=== PATIENT | male | born 1935 | race Caucasian/White ===

== ENCOUNTER 2019-12-29 04:07 | Emergency (ER) | payer MEDICARE, SELFPAY ==
[2019-12-29 04:14] VITALS: BP 148/98; PULSE 92; RESP 20; TEMP 36.2; O2SAT 97
[2019-12-29] MEDS: CIPROFLOXACIN 500 MG TAB PO (04:34)
--- NOTE | 2019-12-29 04:39 | ED.MALEGU ---
HPI - Male Genitourinary General Chief complaint: Urogenital-Male Stated complaint: unable to urinate Time Seen by Provider: 12/29/19 04:29 History of Present Illness HPI Narrative: Patient presents with his for bladder pressure. He has never had a problem with his prostate before. He does not have a urologist. He had increasing pressure in his lower abdomen. And was unable to urinate. The nurse quickly inserted a Correa catheter, and the patient's had nearly a liter returned. The patient feels so much better by the time I get to the room. He had COVID 2 weeks ago. He and his are still on quarantine isolation. He does not have any fever or cough. He does not smoke cigarettes,, or do drug MD Complaint: other (Unable to urinate) Onset (ago): hour(s) Duration: constant Location: abdomen Severity: severe Quality: aching Relieving factors: other (Correa catheter here) Related Data Allergies Allergy/AdvReac Type Severity Reaction Status Date / Time No Known Allergies Allergy Verified 12/29/19 04:13 Review of Systems Review of Systems: Narrative: CONSTITUTIONAL: Denies fever, chills, or sweats. EYES: Denies visual changes, redness, or discharge. ENT: Denies rhinorrhea, congestion, sore throat, or otalgia. CARDIOVASCULAR: Denies chest pain, palpitations, or edema. RESPIRATORY: Denies cough or dyspnea. GASTROINTESTINAL: Lower abdominal pain, but not nausea, vomiting, or diarrhea. GENITOURINARY: Denies dysuria or hematuria. SKIN: Denies rash or itching. MUSCULOSKELETAL: Denies back pain, joint pain, or myalgia. NEUROLOGIC: Denies headache, numbness, or weakness. All systems reviewed & are unremarkable except as noted in HPI and below PMFSH Past Medical History Medical History Urinary retention Social History Social History (Updated 12/29/19 @ 04:41 by Crystal Lindsay MD) Smoking status: Never smoker Alcohol intake: never Substance use: never Exam Narrative: Exam Narrative: GENERAL: Well-appearing, well-nourished, and in no acute distress. HEAD: Normocephalic, atraumatic. EYES: PERRLA and EOMI. ENT: Nares clear, no rhinorrhea or epistaxis. Mucous membranes moist. NECK: Supple. CHEST: Clear to auscultation. No respiratory distress. HEART: Regular rate and rhythm. No murmur heard. Normal peripheral pulses. ABDOMEN: Soft, nontender, nondistended, normal active bowel sounds. EXTREMITIES: Normal range of motion. No edema. SKIN: Warm, dry, no rash. NEURO: No focal deficits. Alert and oriented x3. PSYCH: Normal mood and affect. Course Vital Signs Vital signs: Vital Signs Temperature 97.2 F L 12/29/19 04:14 Pulse Rate 92 12/29/19 04:14 Respiratory Rate 20 12/29/19 04:14 Blood Pressure 148/98 H 12/29/19 04:14 Pulse Oximetry 97 12/29/19 04:14 Temperature 97.2 F L 12/29/19 04:14 Pulse Rate 82 12/29/19 05:34 Respiratory Rate 16 12/29/19 05:34 Blood Pressure 134/75 12/29/19 05:34 Pulse Oximetry 99 12/29/19 05:34 MDM - Male Genitourinary Differential Diagnosis Differential diagnosis: Likely prostatitis and other (Urinary retention) Medical Records Attestation: I reviewed the patient's medical records. Lab Data Attestation: I reviewed the patient's lab results. Result diagrams: 12/29/19 05:03 12/29/19 05:03 Labs: Lab Results 12/29/19 12/29/19 12/29/19 Range/Units 05:03 05:03 05:03 WBC 9.9 (4.5-10.0) K/mm3 RBC 4.75 (4.6-6.20) M/mm3 Hgb 13.9 L (14.0-18.0) g/dL Hct 40.4 L (42.0-52.0) % MCV 85.1 (80-100) fl MCH 29.3 (26-34) pg MCHC 34.4 (32-36) g/dl RDW 14.6 H (11.5-14.5) % Plt Count 685 H (150-375) k/mm3 MPV 9.7 (7.4-10.4) fl Immature Gran % (Auto) 0.4 (0-0.5) % Neut % (Auto) 52.3 (45.5-73.1) % Lymph % (Auto) 31.7 (18.3-44.2) % [place] % (Auto) 14.8 H (2.6-8.5) % Eos % (Auto) 0.5 (0-4.4) % Baso % (Auto)
[2019-12-29 05:11] LABS: Basophils Percent Auto 0.3 % (0.2-1.2); Eosinophils Absolute Auto 0.1 K/mm3 (0-0.3); Eosinophils Percent Auto 0.5 % (0-4.4); Hematocrit 40.4 % (42.0-52.0); Hemoglobin 13.9 g/dL (14.0-18.0); Immature Granulocyte Absolute 0.04 K/mm3 (0.00-0.031); Immature Granulocyte Percent A 0.4 % (0-0.5); Lymphocytes Absolute Auto 3.14 K/mm3 (0.9-3.2); Lymphocytes Percent Auto 31.7 % (18.3-44.2); Mean Corpuscular HGB Conc 34.4 g/dl (32-36); Mean Corpuscular Hemoglobin 29.3 pg (26-34); Mean Corpuscular Volume 85.1 fl (80-100); Mean Platelet Volume 9.7 fl (7.4-10.4); Monocytes Absolute Auto 1.5 K/mm3 (0.1-0.6); Monocytes Percent Auto 14.8 % (2.6-8.5); Neutrophils Absolute Auto 5.2 K/mm3 (1.3-6.7); Neutrophils Percent Auto 52.3 % (45.5-73.1); Platelet Count Result 685 k/mm3 (150-375); Red Blood Count 4.75 M/mm3 (4.6-6.20); Red Cell Distribution Width 14.6 % (11.5-14.5); White Blood Count 9.9 K/mm3 (4.5-10.0)
[2019-12-29 05:17] LABS: Add Urine Microscopic? YES; Appearance Urine Clear (Clear); Bilirubin Urine Negative (Negative); Blood Urine 1+ (Negative); Color Urine Yellow (Yellow); Glucose Urine UA Negative (Negative); Ketones Urine Negative (Negative); Leukocyte Esterase Ur Negative LEU/UL (Negative); Mucus Urine Rare /lpf; Nitrate Urine Negative (Negative); Protein Urine Negative (Negative); Specific Grav Ur 1.012 (1.001-1.035); Urobilinogen Urine Negative mg/dL (<2.0); WBC Urine 0-3 /hpf
[2019-12-29 05:34] VITALS: BP 134/75; PULSE 82; RESP 16; O2SAT 99
[2019-12-29 05:36] LABS: Alanine Aminotransferase 26 U/L (4-50); Albumin Level 3.6 g/dL (3.5-5.1); Alkaline Phosphatase 115 U/L (38-126); Anion Gap 9 mmol/L (8-16); Aspartate Amino Transferase 38 U/L (17-59); Bilirubin,Total 0.4 mg/dL (0.2-1.3); Blood Urea Nitrogen 14 mg/dL (9-20); Calcium 8.6 mg/dL (8.4-10.2); Carbon Dioxide 24 mmol/L (22-30); Chloride 99 mmol/L (98-107); Estimated CRCL calculation 54 ml/min; Estimated Glomerular Filt Rate > 60; Glucose 170 mg/dL (75-110); Potassium 3.6 mmol/L (3.4-5.0); Sodium 132 mmol/L (137-145)
== END 2019-12-29 05:36 | disposition home or self-care (01) ==
PROVIDERS: Emergency Provider Emergency Medicine; PCP Physician Assistant Medical
DX: R33.9 Retention of urine, unspecified (principal); D47.3 Essential (hemorrhagic) thrombocythemia; U07.1 COVID-19
CPT/HCPCS: 36415; 51702; 80053; 81001; 85025; 99283; A9270

== ENCOUNTER 2020-02-10 03:11 | Outpatient (CLI) | payer MEDICARE, SELFPAY ==
[2020-02-10 20:04] LABS: SARS-CoV-2 RNA PCR Negative
== END 2020-02-10 03:12 | disposition home or self-care (01) ==
LOC: ANHCOVIDDT 03:12
PROVIDERS: PCP Physician Assistant Medical; Visit Provider Urology
DX: Z01.812 Encounter for preprocedural laboratory examination (principal); Z20.828 Contact with and (suspected) exposure to other viral communicable diseases
CPT/HCPCS: 87635; C9803; U0003

== ENCOUNTER 2020-02-10 08:16 | Outpatient (CLI) | payer MEDICARE, SELFPAY ==
--- NOTE | 2020-02-10 08:18 | ECG_ITS ---
Measurements Intervals [place] Rate: 81 P: 53 NM: 182 QRS: -36 QRSD: 162 T: 30 QT: 400 QTc: 466 Interpretive Statements SINUS RHYTHM LEFT AXIS DEVIATION RIGHT BUNDLE BRANCH BLOCK BASELINE ARTIFACT- I, II, III, AVR, AVL, AVF, V1-V6 ABNORMAL ECG Electronically Signed On 02-10-2020 8:59:21 CDT by Filippo Ureña D.O.
== END 2020-02-10 08:17 | disposition home or self-care (01) ==
LOC: ANHSURGERY 08:18
PROVIDERS: PCP Physician Assistant Medical; Visit Provider Urology
DX: Z01.812 Encounter for preprocedural laboratory examination (principal); E11.9 Type 2 diabetes mellitus without complications; R94.31 Abnormal electrocardiogram [ECG] [EKG]
CPT/HCPCS: 87635; 93005; C9803; U0003

== ENCOUNTER 2020-02-13 13:08 | Inpatient (IN) | payer MEDICARE, SELFPAY ==
[2020-02-06 14:54] VITALS: BMI 25.7
--- NOTE | 2020-02-09 07:51 | P.HP_ITS ---
H&P: HPI History of Present Illness Date/Time: 02/09/20 07:51 Chief complaint: Bladder CA, BPH, Retention Narrative: Geovanni Nichole Jr. is a 84 year old male recently referred for urinary retention. Patient has long-standing prostatism this become refractory to combination therapy with both tamsulosin and finasteride. After developing acute retention he underwent cystoscopy that showed bilobar hyperplasia of the prostate with a 2 cm prostatic urethra. The time of cystoscopy also had papillary changes in the anterior bladder wall suggestive of a urothelial neoplasm. Review of Systems Cardiovascular: Cardiovascular: Denies chest pain, Denies lightheadedness, Denies palpitations and Denies dyspnea Respiratory: Respiratory: Denies dyspnea Gastrointestinal: Gastrointestinal: Denies diarrhea, Denies nausea and Denies vomiting Genitourinary: Genitourinary: Denies hematuria and Denies dysuria Endocrine: Endocrine: Denies palpitations PMFSH Past Medical History Medical History Urinary retention Social History Social History Smoking status: Former smoker Additional smoking assessment comments: QUIT AGE 49 Alcohol intake: never Substance use: never 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 Meds Home Medications and Allergies Home Medications Medication Instructions Recorded Confirmed Type aspirin 81 mg PO DAILY 02/06/20 02/06/20 History lisinopril 20 mg DAILY 02/06/20 02/06/20 History metformin 500 mg PO BID 02/06/20 02/06/20 History Allergies Allergy/AdvReac Type Severity Reaction Status Date / Time No Known Allergies Allergy Verified 02/06/20 14:51 Exam Const: General: no acute distress Resp: Effort & Inspection: normal respiratory effort GI: Inspection: non-distended GI Palp: No abdominal tenderness and No Guarding due to palpation present (GI) Auscultation: normal bowel sounds Assessment and Plan Assessment and plan (1) Urinary retention: Code(s): R33.9 - Retention of urine, unspecified Status: Acute (2) BPH loc w urin obs/LUTS: Code(s): N40.1 - Benign prostatic hyperplasia with lower urinary tract symptoms Status: Acute (3) Bladder cancer: Code(s): C67.9 - Malignant neoplasm of bladder, unspecified Status: Acute Assessment and Plan: * TURP and TURBT.
[2020-02-12] VITALS (11 sets, daily range): BP systolic 87–154; BP diastolic 53–95; PULSE 41–84; RESP 10–20; TEMP 35.8–36.4; O2SAT 93–99
--- NOTE | 2020-02-12 06:46 | WPDHPUPDATE1 ---
History and Physical Update Update Date/Time: 02/12/20 06:46 History and Physical has been reviewed, including an updated exam of the patient. There are NO changes in the patient's condition. Risks, benefits, and alternatives have been discussed and questions answered. Patient agrees to proceed with procedure.
[2020-02-12 13:20] LABS: Glucose Point of Care 119 (65-105)
[2020-02-12] MEDS: LACTATED RINGERS 1,000 ML 30 ML IV CONT ×2 (13:20→17:33)
--- NOTE | 2020-02-12 14:48 | WPDANESEPPF ---
Anes - Initial Pre Proc Eval Procedure: Operation Date: 02/12/20 15:00 Proposed Procedures p Trans Urethral Resection Bladder Tumor - Sergio Ralph MD s Trans Urethral Resection Prostate - Sergio Ralph MD Date/Time: 02/12/20 14:48 Surgeon: Sergio Ralph MD Pre Op Diagnosis: Bladder CA, BPH, Retention Patient Data Age: 84 Gender: M Height: 5 ft 11 in Weight: 85.9 kg Last Vital Signs Temp 36.2 C L 02/12/20 13:01 Pulse 41 L 02/12/20 13:01 Resp 18 02/12/20 13:01 BP 138/60 02/12/20 13:01 Pulse Ox 94 02/12/20 13:01 Allergies Allergy/AdvReac Type Severity Reaction Status Date / Time No Known Allergies Allergy Verified 02/12/20 13:37 Home Medications Medication Instructions Recorded Confirmed Type aspirin 81 mg PO DAILY 02/06/20 02/12/20 History lisinopril 20 mg DAILY 02/06/20 02/12/20 History metformin 500 mg PO BID 02/06/20 02/12/20 History Laboratory Tests 02/12/20 13:18 POC Capillary Glucose 119 mg/dl H mg/dl (65-105) Patient hx anesthesia problems: none Family hx anesthesia problems: none [facility] Past Medical History Medical History (Updated 02/12/20 @ 14:54 by Randy Olmos MD) HTN (hypertension) Urinary retention Surgical History Surgical History (Updated 02/12/20 @ 14:54 by Randy Olmos MD) History of partial pancreatectomy Social History Social History Smoking status: Former smoker Additional smoking assessment comments: QUIT AGE 49 Alcohol intake: never Substance use: never Living arrangements: with family 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 Anes - Eval Final PreProcedure Day of Procedure 02/12/20 14:48 Patient weight: overweight Heart: regular rate and rhythm Lungs: clear to auscultation Airway: Mallampati scale class II Neurological: alert and oriented Last oral intake: >/= 8 hours ASA classification: III Emergent: no Anesthetic plan: proceed Anesthesia type and monitoring: general LMA and standard monitoring Informed Consent: The patient's anesthetic plan and its attendant risks and benefits were discussed with the patient/family/POA. Questions were solicited and answers provided to the satisfaction of the patient/family/POA.
--- NOTE | 2020-02-12 15:16 | SUR.PREOP ---
1400 PT INFORMED OF SURGERY TIME DELAY. 1500 LEG BAG EMPTIED, WARM BLANKET APPLIED. DENIES ANY OTHER NEEDS.
[2020-02-12 15:45] LABS: Glucose Point of Care 94 (65-105)
[2020-02-12] MEDS: ceFAZolin 2 GM/D5W 50 ML 2 GM/50 ML BAG IVPB (15:46)
[2020-02-12] MEDS: LIDOCAINE HCL 2% GEL UROJET 10 ML PKG MUCOUS MEM (16:07)
[2020-02-12 17:28] LABS: Glucose Point of Care 161 (65-105)
--- NOTE | 2020-02-12 17:38 | PM.PROC ---
Procedure Note - Detailed Date of procedure: 02/12/20 Pre-op diagnosis: Bladder CA, BPH, Retention Post-op diagnosis: other (1. Catheter cystitis (vs. bladder cancer) 2. Bladder stone 3. Urinary retention due to BPH) Procedure performed: 1. TurBT 2. Laser lithotripsy, extraction bladder stone 3. TURP Description of procedure: The patient was brought to the operative suite where he is prepped and draped in routine sterile fashion while in the dorsal lithotomy position after the uneventful induction of a general LMA anesthetic. A 27 Cam[place]onian resectoscope sheath was placed into his bladder. He had no urethral strictures. The patient had trilobar hyperplasia with a very large median lobe. The bladder itself was endoscopically normal, showing no mucosal hyperemia, intravesical neoplasm or foreign bodies. There was a single, orthotopic ureteral orifice bilaterally. These orifices were identified and preserved throughout the remainder of the procedure.He has an area of hyperemia in the posterior bladder wall that I originally thought may represent a urothelial neoplasm. Today, however, it looks more like catheter cystitis. I did resect that and sent for pathological evaluation. The base and periphery that site were cauterized with the loop electrode. Also found about a 2 cm bladder calculus that could not be removed intact. I used a 1000 micron holmium laser fiber to fractured into small pieces, all of which were evacuated with an Ellik evacuator. Attention was first turned to resection of the median lobe. This resection was undertaken from the bladder neck to the verumontanum and carried out until the transverse fibers of the bladder neck were identified. The left lateral lobe was then resected starting at the 6 o'clock position, working counter clockwise to the 12 o'clock position. Again, resection was carried out from the bladder neck to the verumontanum until the capsular fibers of the prostate were identified. The right lateral lobe was resected in a similar fashion starting at the 6 o'clock position working clockwise to the 12 o'clock position and carried out until the capsular fibers of the prostate were identified. Apical tissue was then circumferentially resected. All chips were evacuated from the bladder using an Ellik evacuator. Hemostasis was obtained with electric cautery. The ureteral orifices were again inspected and found to be without injury. Estimated blood loss throughout this procedure was 150cc. The patient was taken to recovery room having tolerated this well. Anesthesia: GLMA Surgeon: Sergio Ralph MD Estimated blood loss (mL): 150 Drains: Yes (24F hematuria catheter) Packing: No Pathology: yes Complications: No immediate complications Condition: stable Disposition: PACU
[2020-02-12] MEDS: fentaNYL CITRATE INJ (*CRX) 100 MCG/2 ML VIAL 25 MCG IV PUSH ×4 (17:49→18:26)
[2020-02-12] MEDS: metFORMIN HCL 500 MG TABLET PO (22:38)
[2020-02-12] MEDS: DOCUSATE SODIUM 100 MG CAPSULE PO (22:38)
[2020-02-12 22:47] LABS: Glucose Point of Care 192 (65-105)
--- NOTE | ~2020-02-13 | XR_ITS ---
XR abdomen obstructive series DATE: 02/17/2020 16:37 INDICATION: Abdominal pain. History of bladder cancer. TECHNIQUE: Portable supine and upright AP views of the abdomen COMPARISON: None FINDINGS: Mild infiltrate or atelectasis suggested at the right lung base. Slight pleural effusions are suggested by minimal blunting of the costophrenic angles. No intraperitoneal free air is evident. No visceromegaly is detected. The psoas shadows are intact. The bowel gas pattern is unremarkable, without evidence of obstruction. IMPRESSION: Mild infiltrate or atelectasis at the right lung base and slight bilateral pleural effusi ons Nonspecific abdomen; no obstruction or intraperitoneal free air is detected Reviewed, dictated and finalized at [facility]. Reviewed, dictated and finalized at location [facility]. IMPRESSION: Mild infiltrate or atelectasis at the right lung base and slight bi lateral pleural effusions Nonspecific abdomen; no obstruction or intraperitoneal free air is detected
[2020-02-13 00:15] VITALS: BP 132/59; PULSE 85; RESP 22; TEMP 36.6; O2SAT 93
--- NOTE | 2020-02-13 02:49 | ADMGEN ---
This patient, Geovanni Nichole , was admitted to 2 Medical Room 249-01. Patient/family oriented to hospital policies and general routines including ID bracelet, bed and alarms, visiting hours, pain management, procedures, bathroom and other care routines, personal items, smoking policy, room service/diet, and visiting hours. Valuables list has been completed. Information on how to activate the Rapid Response Team has been discussed. Patient/Family are encouraged to report perceived risks to care and to ask questions if they do not understand what they are told or what they should do. Patient on floor at 1847
[2020-02-13 04:15] VITALS: BP 149/68; PULSE 79; RESP 18; TEMP 36.3; O2SAT 97
[2020-02-13 05:18] LABS: Hematocrit 33.5 % (42.0-52.0); Hemoglobin 11.4 g/dL (14.0-18.0)
[2020-02-13 05:35] LABS: Anion Gap 8 mmol/L (8-16); Blood Urea Nitrogen 19 mg/dL (9-20); Calcium 8.6 mg/dL (8.4-10.2); Carbon Dioxide 24 mmol/L (22-30); Chloride 102 mmol/L (98-107); Estimated CRCL calculation 49 ml/min; Estimated Glomerular Filt Rate > 60; Glucose 220 mg/dL (75-110); Potassium 4.8 mmol/L (3.4-5.0); Sodium 134 mmol/L (137-145)
[2020-02-13 07:54] LABS: Glucose Point of Care 143 (65-105)
--- NOTE | 2020-02-13 08:00 | WPDUROPN2 ---
Progress Note: A&P Assessment and Plan (1) Urinary retention: Code(s): R33.9 - Retention of urine, unspecified Status: Acute (2) BPH loc w urin obs/LUTS: Code(s): N40.1 - Benign prostatic hyperplasia with lower urinary tract symptoms Status: Acute Assessment and Plan: Doing well following TURP. Stop CBI / voiding trial later this morning if urine remains clear. Subjective Subjective Date/Time Seen: 02/13/20 08:00 POD #1 TURP Comfortable, no complaints Review of Systems Cardiovascular: Cardiovascular: Denies chest pain, Denies lightheadedness, Denies palpitations and Denies dyspnea Respiratory: Respiratory: Denies dyspnea Gastrointestinal: Gastrointestinal: Denies diarrhea, Denies nausea and Denies vomiting Genitourinary: Genitourinary: Denies hematuria and Denies dysuria Endocrine: Endocrine: Denies palpitations Exam Const: General: no acute distress Resp: Effort & Inspection: normal respiratory effort GI: Inspection: non-distended GI Palp: No abdominal tenderness and No Guarding due to palpation present (GI) Auscultation: normal bowel sounds Objective Data Vital Signs Vital Signs: Vital Signs - 24 hr 02/12/20 13:01 02/12/20 17:16 02/12/20 17:30 Temperature 97.2 F L 97.4 F L Pulse Rate 41 L 79 84 Respiratory Rate 18 10 L 20 Blood Pressure 138/60 87/53 L 116/66 Pulse Oximetry 94 98 97 02/12/20 17:45 02/12/20 18:00 02/12/20 18:15 Temperature 97 F L Pulse Rate 80 80 76 Respiratory Rate 20 16 18 Blood Pressure 132/90 134/72 146/84 H Pulse Oximetry 95 93 95 02/12/20 18:25 02/12/20 18:50 02/12/20 19:05 Temperature 96.4 F L 97.3 F L Pulse Rate 81 77 84 Respiratory Rate 15 18 20 Blood Pressure 154/93 H 153/95 H 150/86 H Pulse Oximetry 99 96 98 02/12/20 19:35 02/12/20 20:30 02/13/20 00:15 Temperature 97.5 F L 97.4 F L 97.8 F Pulse Rate 78 73 85 Respiratory Rate 20 20 22 H Blood Pressure 142/82 H 146/85 H 132/59 L Pulse Oximetry 94 98 93 09/25/20 04:15 Temperature 97.3 F L Pulse Rate 79 Respiratory Rate 18 Blood Pressure 149/68 H Pulse Oximetry 97 Intake/Output Intake/Output: Intake & Output 02/10/20 02/11/20 02/12/20 02/13/20 23:59 23:59 23:59 23:59 Intake Total 650 200 Output Total [id number] [facility] -[id number] [id number] Meds/Results Medications: Active Medications Generic Name Dose Route Start Last Admin Trade Name Freq PRN Reason Stop Dose Admin Hydrocodone Bitart/Acetaminophen 1 tab 02/12/20 18:30 [place] 5-325 Mg PO Q4H PRN Pain Rated 4-6 Cephalexin HCl 500 mg 02/13/20 13:00 Keflex Capsule PO QID FLORIAN Dextrose 12.5 gm 02/12/20 18:30 Dextrose 50% Syringe IV PUSH PRN PRN Hypoglycemia Protocol Docusate Sodium 100 mg 02/12/20 21:00 02/12/20 22:38 Colace Capsule PO 100 mg Q12HR FLORIAN Administration Glucagon 1 mg 02/12/20 18:30 Glucagon For Inj IM PRN PRN Hypoglycemia Protocol Glucose 15 gm 02/12/20 18:30 Glutose 15 PO PRN PRN Hypoglycemia Protocol Hyoscyamine 0.125 mg 02/12/20 18:30 Levsin Tablet SUBLINGUAL Q6H PRN Bladder Spasm Cefazolin Sodium 1 gm in 50 mls @ 100 mls/hr 02/13/20 00:00 02/13/20 00:37 Ancef 1 Gm/D5w 50 Ml Pm IVPB 02/13/20 08:29 Infused Q8H FLORIAN Infusion Acetaminophen 1,000 mg in 100 mls @ 400 mls/hr 02/12/20 18:30 Ofirmev 1,000 Mg Ivpb IVPB 02/13/20 18:31 Q6H PRN Pain Rated 1-3 Dextrose 1,000 mls @ 100 mls/hr 02/12/20 18:30 Dextrose 5% 1,000 Ml IVPB PRN PRN Hypoglycemia Protocol Insulin Aspart 2 - 5 units 02/13/20 08:00 Novolog SUB-Q TIDWM [facility] Protocol Lisinopril 20 mg 02/13/20 09:00 Prinivil BY MOUTH DAILY [facility] Metformin HCl 500 mg 02/12/20 18:50 02/12/20 22:38 Glucophage PO 500 mg BIDWM FLORIAN Administration Morphine Sulfate 2 mg 02/12/20 18:30 Morphine Sulfate Inj (*Crx) IV PUSH
[2020-02-13 08:15] VITALS: BP 145/63; PULSE 77; RESP 18; TEMP 36.4; O2SAT 98
[2020-02-13] MEDS: metFORMIN HCL 500 MG TABLET PO ×2 (09:55→17:19)
[2020-02-13] MEDS: lisinopriL 20 MG TABLET BY MOUTH (09:55)
[2020-02-13] MEDS: DOCUSATE SODIUM 100 MG CAPSULE PO ×2 (09:55→20:11)
[2020-02-13 10:54] VITALS: BP 161/90; PULSE 107; RESP 20; TEMP 36.9; O2SAT 92
[2020-02-13] MEDS: ONDANSETRON INJ 4 MG/2 ML VIAL IV PUSH (11:21)
[2020-02-13 11:36] LABS: Glucose Point of Care 141 (65-105)
[2020-02-13] MEDS: CEPHALEXIN 500 MG CAPSULE PO ×3 (13:04→20:11)
[2020-02-13 14:00] VITALS: BP 93/53; PULSE 61; RESP 20; TEMP 36.9; O2SAT 91
[2020-02-13 16:59] LABS: Glucose Point of Care 190 (65-105)
[2020-02-13 21:43] LABS: Glucose Point of Care 209 (65-105)
[2020-02-13 22:00] VITALS: BP 102/70; PULSE 97; RESP 20; TEMP 37; O2SAT 98
[2020-02-14 05:56] VITALS: BP 135/79; PULSE 100; RESP 20; TEMP 36.8; O2SAT 92
[2020-02-14 08:11] LABS: Glucose Point of Care 189 (65-105)
[2020-02-14] MEDS: metFORMIN HCL 500 MG TABLET PO ×2 (08:12→17:36)
[2020-02-14] MEDS: lisinopriL 20 MG TABLET BY MOUTH (08:12)
[2020-02-14] MEDS: DOCUSATE SODIUM 100 MG CAPSULE PO ×2 (08:12→20:10)
[2020-02-14] MEDS: CEPHALEXIN 500 MG CAPSULE PO ×4 (08:12→20:10)
--- NOTE | 2020-02-14 09:08 | PC.NURSE ---
Patient's CBI was stopped this morning at [address] Ralph' orders. Urine output is very dark, bloody;no clots present. Paged to Dr. Ralph' exchange and spoke with Dr. Gonzalez and received orders to restart CBI and hold discharge until he is able to come see him later today.
[2020-02-14 12:07] LABS: Glucose Point of Care 192 (65-105)
[2020-02-14 14:00] VITALS: BP 140/74; PULSE 94; RESP 16; TEMP 37.7; O2SAT 94
[2020-02-14 14:35] VITALS: TEMP 37.7
[2020-02-14] MEDS: ACETAMINOPHEN 500 MG TABLET 1000 MG PO (14:35)
[2020-02-14 15:35] VITALS: TEMP 36.7
[2020-02-14 18:30] LABS: Glucose Point of Care 181 (65-105)
--- NOTE | 2020-02-14 21:13 | WPDUROPN2 ---
Progress Note: A&P Additional Plan Maintain catheter, titrate CBI to light pink/clear urine. We will attempt a trial of void tomorrow if urine is without clot. Time Spent With Patient Time with patient: less than 15 minutes Subjective Subjective Date/Time Seen: 02/14/20 1530 JENNIFEREO, patient's urine is hematuric, after discussion with me, floor nursing restarted CBI. No clots. Patient feels well but had a bout of nausea. Review of Systems Review of Systems: All systems reviewed & are unremarkable except as noted in HPI and below Exam Const: General: cooperative, healthy appearing, comfortable and no acute distress Chest: Chest palpation & inspection: normal inspection of the chest Resp: Effort & Inspection: normal respiratory effort, able to speak in complete sentences, normal respiratory pattern and no audible wheezes Cardio: Jugular venous distension: no JVD Rate: regular rate Rhythm: regular rhythm Peripheral pulses: Peripheral pulses 2+ throughout GI: Inspection: normal to inspection, no abdominal wall ecchymosis and non-distended GI Palp: No abdominal tenderness Urinary Catheter: Urinary Catheter: patent and draining and urine pink Skin: General skin exam: normal color and no rashes or lesions noted Objective Data Vital Signs Vital Signs: Vital Signs - 24 hr 02/13/20 22:00 02/14/20 05:56 02/14/20 14:00 Temperature 98.6 F 98.2 F 99.8 F H Pulse Rate 97 100 94 Respiratory Rate 20 20 16 Blood Pressure 102/70 135/79 140/74 Pulse Oximetry 98 92 94 02/14/20 14:35 02/14/20 15:35 Temperature 99.8 F H 98.0 F Pulse Rate Respiratory Rate Blood Pressure Pulse Oximetry Intake/Output Intake/Output: Intake & Output 02/11/20 02/12/20 02/13/20 02/14/20 23:59 23:59 23:59 23:59 Intake Total 711 7560 2310 Output Total 7223 6489 9033 [facility] -[id number] -[phone] -240 Meds/Results Medications: Active Medications Generic Name Dose Route Start Last Admin Trade Name Freq PRN Reason Stop Dose Admin Acetaminophen 1,000 mg 02/14/20 14:23 02/14/20 14:35 Tylenol Tablet PO 1,000 mg Q6H PRN Administration Mild Pain (1-3) or Fever Hydrocodone Bitart/Acetaminophen 1 tab 02/12/20 18:30 [place] 5-325 Mg PO Q4H PRN Pain Rated 4-6 Cephalexin HCl 500 mg 02/13/20 13:00 02/14/20 20:10 Keflex Capsule PO 500 mg QID FLORIAN Administration Dextrose 12.5 gm 02/12/20 18:30 Dextrose 50% Syringe IV PUSH PRN PRN Hypoglycemia Protocol Docusate Sodium 100 mg 02/12/20 21:00 02/14/20 20:10 Colace Capsule PO 100 mg Q12HR FLORIAN Administration Glucagon 1 mg 02/12/20 18:30 Glucagon For Inj IM PRN PRN Hypoglycemia Protocol Glucose 15 gm 02/12/20 18:30 Glutose 15 PO PRN PRN Hypoglycemia Protocol Hyoscyamine 0.125 mg 02/12/20 18:30 Levsin Tablet SUBLINGUAL Q6H PRN Bladder Spasm Dextrose 1,000 mls @ 100 mls/hr 02/12/20 18:30 Dextrose 5% 1,000 Ml IVPB PRN PRN Hypoglycemia Protocol Insulin Aspart 2 - 5 units 02/13/20 08:00 02/14/20 18:27 Novolog SUB-Q Not Given TIDWM [facility] Protocol Lisinopril 20 mg 02/13/20 09:00 02/14/20 08:12 Prinivil BY MOUTH 20 mg DAILY FLORIAN Administration Metformin HCl 500 mg 02/12/20 18:50 02/14/20 17:36 Glucophage PO 500 mg BIDWM [place]ORIAN Administration Morphine Sulfate 2 mg 02/12/20 18:30 Morphine Sulfate Inj (*Crx) IV PUSH Q2H PRN Pain Rated 7-10 Naloxone HCl 0.1 mg 02/12/20 18:30 Narcan IV PUSH Q2M PRN Opiate Reversal Ondansetron HCl 4 mg 02/12/20 18:30 02/13/20 11:21 Zofran Inj IV PUSH 4 mg Q12H PRN Administration Nausea And Vomiting Labs Labs: Laboratory Results - last 24 hr 02/13/20 02/14/20 02/14/20 20:07 08:08 11:55 POC Capillary Glucose 209 H 189 H 192 H 02/14/20 18:20 POC Capillary Glucose 181 H
[2020-02-14 21:57] VITALS: BP 106/71; PULSE 91; RESP 16; TEMP 36.7; O2SAT 96
[2020-02-14] MEDS: ONDANSETRON INJ 4 MG/2 ML VIAL IV PUSH (22:31)
[2020-02-15 00:35] LABS: Glucose Point of Care 190 (65-105)
[2020-02-15 06:00] VITALS: BP 111/74; PULSE 82; RESP 16; TEMP 36.6; O2SAT 97
[2020-02-15 07:57] LABS: Glucose Point of Care 171 (65-105)
[2020-02-15] MEDS: metFORMIN HCL 500 MG TABLET PO ×2 (08:31→17:19)
[2020-02-15] MEDS: DOCUSATE SODIUM 100 MG CAPSULE PO ×2 (08:31→21:12)
[2020-02-15] MEDS: CEPHALEXIN 500 MG CAPSULE PO ×4 (08:31→21:12)
[2020-02-15] MEDS: lisinopriL 20 MG TABLET BY MOUTH (08:31)
[2020-02-15] MEDS: polyethylene glycoL 3350 17 GM POWD.PACK PO (10:43)
[2020-02-15 12:01] LABS: Glucose Point of Care 167 (65-105)
[2020-02-15] MEDS: HYDROcodone/acetaminophen (*CRX) 5-325 MG TABLET 1 TAB PO ×2 (13:11→21:14)
[2020-02-15 14:00] VITALS: BP 119/74; PULSE 80; RESP 14; TEMP 36.7; O2SAT 98
--- NOTE | 2020-02-15 16:03 | WPDUROPN2 ---
Progress Note: A&P Assessment and Plan (1) Urinary retention: Code(s): R33.9 - Retention of urine, unspecified Status: Acute Assessment and Plan: Continue trial of void, Bladder scan performed at bedside with 100 mL noted. Patient will drink, if he voids he may discharge this afternoon. If unable to void, floor nursing is instructed to hold discharge and place a 20 or 22F Correa catheter to allow for hand irrigation if necessary. (2) BPH loc w urin obs/LUTS: Code(s): N40.1 - Benign prostatic hyperplasia with lower urinary tract symptoms Status: Acute (3) Bladder cancer: Code(s): C67.9 - Malignant neoplasm of bladder, unspecified Status: Acute Subjective Subjective Date/Time Seen: 02/15/20 16:03 Post Op day: 2 Interval history: Patient denies pain, has ambulated multiple times, catheter with hematuric urine with no clots. Catheter discontinued this morning, however patient has not yet voided. He is drinking and very anxious about prospect of going home with a catheter. Exam Narrative: Exam Narrative: NAD, A&Ox3 RRR eWOB S/NT/ND 2+DPs, no C/C/E Objective Data Vital Signs Vital Signs: Vital Signs - 24 hr 02/14/20 21:57 02/15/20 06:00 Temperature 98.0 F 97.8 F Pulse Rate 91 82 Respiratory Rate 16 16 Blood Pressure 106/71 111/74 Pulse Oximetry 96 97 Intake/Output Intake/Output: Intake & Output 02/12/20 02/13/20 02/14/20 02/15/20 23:59 23:59 23:59 23:59 Intake Total 650 1180 2310 440 Output Total 5246 6263 2550 650 [facility] -4575 -5090 -240 -210 Meds/Results Medications: Active Medications Generic Name Dose Route Start Last Admin Trade Name Freq PRN Reason Stop Dose Admin Acetaminophen 1,000 mg 02/14/20 14:23 02/14/20 14:35 Tylenol Tablet PO 1,000 mg Q6H PRN Administration Mild Pain (1-3) or Fever Hydrocodone Bitart/Acetaminophen 1 tab 02/12/20 18:30 02/15/20 13:11 [place] 5-325 Mg PO 1 tab Q4H PRN Administration Pain Rated 4-6 Cephalexin HCl 500 mg 02/13/20 13:00 02/15/20 12:28 Keflex Capsule PO 500 mg QID FLORIAN Administration Dextrose 12.5 gm 02/12/20 18:30 Dextrose 50% Syringe IV PUSH PRN PRN Hypoglycemia Protocol Docusate Sodium 100 mg 02/12/20 21:00 02/15/20 08:31 Colace Capsule PO 100 mg Q12HR FLORIAN Administration Glucagon 1 mg 02/12/20 18:30 Glucagon For Inj IM PRN PRN Hypoglycemia Protocol Glucose 15 gm 02/12/20 18:30 Glutose 15 PO PRN PRN Hypoglycemia Protocol Hyoscyamine 0.125 mg 02/12/20 18:30 Levsin Tablet SUBLINGUAL Q6H PRN Bladder Spasm Dextrose 1,000 mls @ 100 mls/hr 02/12/20 18:30 Dextrose 5% 1,000 Ml IVPB PRN PRN Hypoglycemia Protocol Insulin Aspart 2 - 5 units 02/13/20 08:00 02/15/20 12:07 Novolog SUB-Q Not Given TIDWM [facility] Protocol Lisinopril 20 mg 02/13/20 09:00 02/15/20 08:31 Prinivil BY MOUTH 20 mg DAILY FLORIAN Administration Metformin HCl 500 mg 02/12/20 18:50 02/15/20 08:31 Glucophage PO 500 mg BIDWM FLORIAN Administration Morphine Sulfate 2 mg 02/12/20 18:30 Morphine Sulfate Inj (*Crx) IV PUSH Q2H PRN Pain Rated 7-10 Naloxone HCl 0.1 mg 02/12/20 18:30 Narcan IV PUSH Q2M PRN Opiate Reversal Ondansetron HCl 4 mg 02/12/20 18:30 02/14/20 22:31 Zofran Inj IV PUSH 4 mg Q12H PRN Administration Nausea And Vomiting Polyethylene Glycol 17 gm 02/15/20 10:27 02/15/20 10:43 Miralax PO 17 gm QAM PRN Administration Constipation Labs Labs: Laboratory Results - last 24 hr 02/14/20 02/14/20 02/15/20 18:20 20:06 07:49 POC Capillary Glucose 181 H 190 H 171 H 02/15/20 11:59 POC Capillary Glucose 167 H
[2020-02-15 17:00] LABS: Glucose Point of Care 159 (65-105)
[2020-02-15] MEDS: LIDOCAINE HCL 2% GEL UROJET 10 ML PKG MUCOUS MEM (19:51)
[2020-02-15 21:49] VITALS: BP 113/79; PULSE 81; RESP 16; TEMP 37; O2SAT 96
[2020-02-15 22:16] LABS: Glucose Point of Care 171 (65-105)
[2020-02-16 05:51] VITALS: BP 126/73; PULSE 76; RESP 18; TEMP 36.9; O2SAT 92
--- NOTE | 2020-02-16 07:17 | WPDUROPN2 ---
Progress Note: A&P Assessment and Plan (1) Bladder cancer: Code(s): C67.9 - Malignant neoplasm of bladder, unspecified Status: Acute (2) Urinary retention: Code(s): R33.9 - Retention of urine, unspecified Status: Acute (3) BPH loc w urin obs/LUTS: Code(s): N40.1 - Benign prostatic hyperplasia with lower urinary tract symptoms Status: Acute Assessment and Plan: With voiding trial yesterday pt. voided moderate amounts with scant incontinence but later developed recurrent hematuria with clots. Urine now minimally blood tinged but clears promptly with resumption of CBI. Will likely plan to leave catheter indwelling until either mid-week or early next week before another voiding trial. Subjective Subjective Date/Time Seen: 02/16/20 07:17 POD #4 s/p TURP/TURBT/bladder stone extraction Recurrent hematuria with clots with voiding trial yesterday. Review of Systems Cardiovascular: Cardiovascular: Denies chest pain, Denies lightheadedness, Denies palpitations and Denies dyspnea Respiratory: Respiratory: Denies dyspnea Gastrointestinal: Gastrointestinal: Denies diarrhea, Denies nausea and Denies vomiting Genitourinary: Genitourinary: Denies hematuria and Denies dysuria Endocrine: Endocrine: Denies palpitations Exam Const: General: no acute distress Resp: Effort & Inspection: normal respiratory effort GI: Inspection: non-distended GI Palp: No abdominal tenderness and No Guarding due to palpation present (GI) Auscultation: normal bowel sounds Objective Data Vital Signs Vital Signs: Vital Signs - 24 hr 02/15/20 14:00 02/15/20 21:49 02/16/20 05:51 Temperature 98.1 F 98.6 F 98.4 F Pulse Rate 80 81 76 Respiratory Rate 14 16 18 Blood Pressure 119/74 113/79 126/73 Pulse Oximetry 98 96 92 Intake/Output Intake/Output: Intake & Output 02/13/20 02/14/20 02/15/20 02/16/20 23:59 23:59 23:59 23:59 Intake Total 1180 2310 1980 350 Output Total 8265 2550 2700 1650 Balance -5090 -240 -720 -1300 Meds/Results Medications: Active Medications Generic Name Dose Route Start Last Admin Trade Name Freq PRN Reason Stop Dose Admin Acetaminophen 1,000 mg 02/14/20 14:23 02/14/20 14:35 Tylenol Tablet PO 1,000 mg Q6H PRN Administration Mild Pain (1-3) or Fever Hydrocodone Bitart/Acetaminophen 1 tab 02/12/20 18:30 02/15/20 21:14 [place] 5-325 Mg PO 1 tab Q4H PRN Administration Pain Rated 4-6 Cephalexin HCl 500 mg 02/13/20 13:00 02/15/20 21:12 Keflex Capsule PO 500 mg QID FLORIAN Administration Dextrose 12.5 gm 02/12/20 18:30 Dextrose 50% Syringe IV PUSH PRN PRN Hypoglycemia Protocol Docusate Sodium 100 mg 02/12/20 21:00 02/15/20 21:12 Colace Capsule PO 100 mg Q12HR FLORIAN Administration Glucagon 1 mg 02/12/20 18:30 Glucagon For Inj IM PRN PRN Hypoglycemia Protocol Glucose 15 gm 02/12/20 18:30 Glutose 15 PO PRN PRN Hypoglycemia Protocol Hyoscyamine 0.125 mg 02/12/20 18:30 Levsin Tablet SUBLINGUAL Q6H PRN Bladder Spasm Dextrose 1,000 mls @ 100 mls/hr 02/12/20 18:30 Dextrose 5% 1,000 Ml IVPB PRN PRN Hypoglycemia Protocol Insulin Aspart 2 - 5 units 02/13/20 08:00 02/15/20 17:10 Novolog SUB-Q Not Given TIDWM [facility] Protocol Lisinopril 20 mg 02/13/20 09:00 02/15/20 08:31 Prinivil BY MOUTH 20 mg DAILY [facility] Administration Metformin HCl 500 mg 02/12/20 18:50 02/15/20 17:19 Glucophage PO 500 mg BIDWM [facility] Administration Morphine Sulfate 2 mg 02/12/20 18:30 Morphine Sulfate Inj (*Crx) IV PUSH Q2H PRN Pain Rated 7-10 Naloxone HCl 0.1 mg 02/12/20 18:30 Narcan IV PUSH Q2M PRN Opiate Reversal Ondansetron HCl 4 mg 02/12/20 18:30 02/14/20 22:31 Zofran Inj IV PUSH 4 mg Q12H PRN Administration Nausea And Vomiting Polyethylene Glycol 17 gm
[2020-02-16 08:05] LABS: Glucose Point of Care 155 (65-105)
[2020-02-16 08:10] VITALS: PULSE 76; RESP 18; O2SAT 92
[2020-02-16] MEDS: metFORMIN HCL 500 MG TABLET PO ×2 (08:17→17:51)
[2020-02-16] MEDS: DOCUSATE SODIUM 100 MG CAPSULE PO ×2 (08:17→21:02)
[2020-02-16] MEDS: lisinopriL 20 MG TABLET BY MOUTH (08:17)
[2020-02-16] MEDS: CEPHALEXIN 500 MG CAPSULE PO ×4 (08:17→21:02)
[2020-02-16 11:23] LABS: Glucose Point of Care 134 (65-105)
[2020-02-16 14:00] VITALS: BP 120/73; PULSE 89; RESP 18; TEMP 37; O2SAT 94
[2020-02-16 16:25] LABS: Glucose Point of Care 122 (65-105)
[2020-02-16 20:08] VITALS: BP 121/70; PULSE 95; RESP 18; TEMP 36.8; O2SAT 93
[2020-02-16 22:00] LABS: Glucose Point of Care 198 (65-105)
[2020-02-17 06:00] VITALS: BP 115/75; PULSE 81; RESP 16; TEMP 37.1; O2SAT 95
--- NOTE | 2020-02-17 06:54 | WPDUROPN2 ---
Progress Note: A&P Assessment and Plan (1) BPH loc w urin obs/LUTS: Code(s): N40.1 - Benign prostatic hyperplasia with lower urinary tract symptoms Status: Acute (2) Bladder cancer: Code(s): C67.9 - Malignant neoplasm of bladder, unspecified Status: Acute (3) Urinary retention: Code(s): R33.9 - Retention of urine, unspecified Status: Acute Assessment and Plan: Urine clear [id number] -> catheter out for voiding trial today. Bladder and prostate pathology benign. Subjective Subjective Date/Time Seen: 02/17/20 06:54 POD #5 TURP/TURBT Urine clear [id number] No complaints Review of Systems Cardiovascular: Cardiovascular: Denies chest pain, Denies lightheadedness, Denies palpitations and Denies dyspnea Respiratory: Respiratory: Denies dyspnea Gastrointestinal: Gastrointestinal: Denies diarrhea, Denies nausea and Denies vomiting Genitourinary: Genitourinary: Denies hematuria and Denies dysuria Endocrine: Endocrine: Denies palpitations Exam Const: General: no acute distress Resp: Effort & Inspection: normal respiratory effort GI: Inspection: non-distended GI Palp: No abdominal tenderness and No Guarding due to palpation present (GI) Auscultation: normal bowel sounds Objective Data Vital Signs Vital Signs: Vital Signs - 24 hr 02/16/20 08:10 02/16/20 14:00 02/16/20 20:08 Temperature 98.6 F 98.2 F Pulse Rate 76 89 95 Respiratory Rate 18 18 18 Blood Pressure 120/73 121/70 Pulse Oximetry 92 94 93 Intake/Output Intake/Output: Intake & Output 02/14/20 02/15/20 02/16/20 02/17/20 23:59 23:59 23:59 23:59 Intake Total 2310 1980 2070 250 Output Total 2550 2700 2550 900 Balance -778 -438 -667 -499 Meds/Results Medications: Active Medications Generic Name Dose Route Start Last Admin Trade Name Freq PRN Reason Stop Dose Admin Acetaminophen 1,000 mg 02/14/20 14:23 02/14/20 14:35 Tylenol Tablet PO 1,000 mg Q6H PRN Administration Mild Pain (1-3) or Fever Hydrocodone Bitart/Acetaminophen 1 tab 02/12/20 18:30 02/15/20 21:14 [place] 5-325 Mg PO 1 tab Q4H PRN Administration Pain Rated 4-6 Cephalexin HCl 500 mg 02/13/20 13:00 02/16/20 21:02 Keflex Capsule PO 500 mg QID FLORIAN Administration Dextrose 12.5 gm 02/12/20 18:30 Dextrose 50% Syringe IV PUSH PRN PRN Hypoglycemia Protocol Docusate Sodium 100 mg 02/12/20 21:00 02/16/20 21:02 Colace Capsule PO 100 mg Q12HR FLORIAN Administration Glucagon 1 mg 02/12/20 18:30 Glucagon For Inj IM PRN PRN Hypoglycemia Protocol Glucose 15 gm 02/12/20 18:30 Glutose 15 PO PRN PRN Hypoglycemia Protocol Hyoscyamine 0.125 mg 02/12/20 18:30 Levsin Tablet SUBLINGUAL Q6H PRN Bladder Spasm Dextrose 1,000 mls @ 100 mls/hr 02/12/20 18:30 Dextrose 5% 1,000 Ml IVPB PRN PRN Hypoglycemia Protocol Insulin Aspart 2 - 5 units 02/13/20 08:00 02/16/20 16:27 Novolog SUB-Q Not Given TIDWM [facility] Protocol Lisinopril 20 mg 02/13/20 09:00 02/16/20 08:17 Prinivil BY MOUTH 20 mg DAILY FLORIAN Administration Metformin HCl 500 mg 02/12/20 18:50 02/16/20 17:51 Glucophage PO 500 mg BIDWM [facility] Administration Morphine Sulfate 2 mg 02/12/20 18:30 Morphine Sulfate Inj (*Crx) IV PUSH Q2H PRN Pain Rated 7-10 Naloxone HCl 0.1 mg 02/12/20 18:30 Narcan IV PUSH Q2M PRN Opiate Reversal Ondansetron HCl 4 mg 02/12/20 18:30 02/14/20 22:31 Zofran Inj IV PUSH 4 mg Q12H PRN Administration Nausea And Vomiting Polyethylene Glycol 17 gm 02/15/20 10:27 02/15/20 10:43 Miralax PO 17 gm QAM PRN Administration Constipation Labs Labs: Laboratory Results - last 24 hr 02/16/20 02/16/20 02/16/20 07:38 11:21 16:12 POC Capillary Glucose 155 H 134 H 122 H 02/16/20 21:00 POC Capillary Glucose 198 H
[2020-02-17] MEDS: polyethylene glycoL 3350 17 GM POWD.PACK PO (07:53)
[2020-02-17] MEDS: lisinopriL 20 MG TABLET BY MOUTH (07:54)
[2020-02-17] MEDS: CEPHALEXIN 500 MG CAPSULE PO ×3 (07:55→16:47)
[2020-02-17] MEDS: metFORMIN HCL 500 MG TABLET PO ×2 (07:55→16:47)
[2020-02-17] MEDS: DOCUSATE SODIUM 100 MG CAPSULE PO (07:58)
[2020-02-17 11:33] LABS: Glucose Point of Care 153 (65-105)
[2020-02-17 11:33] LABS: Glucose Point of Care 136 (65-105)
[2020-02-17 14:00] VITALS: BP 139/67; PULSE 90; RESP 16; TEMP 36.7; O2SAT 94
--- NOTE | 2020-02-17 14:02 | PM.DS ---
DS: Admitting Diagnosis Admitting Diagnosis Admitting Diagnosis: Bladder CA, BPH, Retention DS: Discharge Diagnosis Discharge Diagnosis (1) BPH loc w urin obs/LUTS: Code(s): N40.1 - Benign prostatic hyperplasia with lower urinary tract symptoms Status: Acute (2) Urinary retention: Code(s): R33.9 - Retention of urine, unspecified Status: Acute (3) Bladder stone: Code(s): N21.0 - Calculus in bladder Status: Acute DS: Summary Time Spent with Patient Time attestation: Total time spent providing and/or coordinating discharge services:15min Patient with longstanding BPH and urinary retention was admitted on morning of his planned TURP. The time of the procedure he we also found a bladder stone which we extracted with the assistance of laser lithotripsy. In the office he had some irritation in the posterior bladder wall suggestive of possible neoplasm. At the time of resection on the day of admission, however, did appear to be more consistent with catheter cystitis and indeed the pathology came back benign. In addition to the above he underwent a TURP. His postoperative course was remarkable for prolonged bleeding necessitating an additional several day admission. Ultimately, however his urine cleared and he voided well on the day voiding trial. Exam Const: General: no acute distress Resp: Effort & Inspection: normal respiratory effort GI: Inspection: non-distended GI Palp: No abdominal tenderness and No Guarding due to palpation present (GI) Auscultation: normal bowel sounds DS: Data Data Completed and Pending Completed studies during hospitalization: Pending at discharge 02/12/20 16:16 Surgical [PTH] Routine Surgical [PTH] Routine Labs on day of discharge: Labs from last 24 hours 02/17/20 02/17/20 02/16/20 11:31 07:50 21:00 POC Capillary Glucose 136 H 153 H 198 H 02/16/20 16:12 POC Capillary Glucose 122 H Discharge Plan Discharge Attending physician on discharge: Sergio Ralph Discharging Clinician: Sergio Ralph Patient Disposition: Home, Self-Care Activity: no straining Diet: regular Discharge Instructions: 1) Activity: No lifting/straining >15lbs. x2 weeks. 2) Diet: Resume normal pre-admission diet. 3) Follow-up: 2-3 weeks / call office for appointment ([phone]). Stand Alone Forms: General Discharge Instructions Follow-up/Referrals: Sergio Ralph MD [Physician] - 2 Weeks Discharge Medications: New hydrocodone-acetaminophen 5-325 mg tablet 1 - 2 tablet PO Q6H PRN (Reason: pain) Qty: 20 RF: 0 ciprofloxacin HCl 500 mg tablet 500 mg PO Q12H Qty: 10 RF: 0 docusate sodium [Colace] 100 mg capsule 100 mg PO DAILY Qty: 30 RF: 0 Continued metformin 500 mg Tablet 500 mg PO BID RF: 0 lisinopril 20 mg tablet 20 mg DAILY RF: 0 Held aspirin 81 mg Tablet,Delayed Release (Dr/Ec) 81 mg PO DAILY RF: 0 Hold Instructions: Resume on 02/18/20. Date of admission: 02/14/20 18:39 Primary Care Provider: Juan,Jasmin Berumen Admitting Provider: Sergio Ralph Attending physician on admission: Sergio Ralph
[2020-02-17] MEDS: MAGNESIUM CITRATE 300 ML BTL PO (14:23)
[2020-02-17 16:12] VITALS: BP 155/81; PULSE 98; O2SAT 97
== END 2020-02-17 18:45 | disposition home or self-care (01) | DRG 708 ==
LOC: ANHSURGERY 13:10 → ANH2MED 13:10
PROVIDERS: Admitting Provider Urology; PCP Physician Assistant Medical; Visit Provider Urology
PROC: 0TBB8ZZ Excision of Bladder, Via Natural or Artificial Opening Endoscopic (ICD-10-PCS; principal; 2020-02-12 15:00)
PROC: 0VT08ZZ Resection of Prostate, Via Natural or Artificial Opening Endoscopic (ICD-10-PCS; CPT 52601; 2020-02-12 15:00)
DX: N40.1 Benign prostatic hyperplasia with lower urinary tract symptoms (principal); R33.9 Retention of urine, unspecified; N30.20 Other chronic cystitis without hematuria; N21.0 Calculus in bladder; I10 Essential (primary) hypertension; Z87.891 Personal history of nicotine dependence
CPT/HCPCS: 36415; 74019; 80048; 82365; 85014; 85018; 88300; 88305; A9270; C1758; G0378; J0131; J0690; J1100; J2405; J2704; J3010; J7120

== ENCOUNTER 2021-09-09 10:01 | Observation (INO) | payer MEDICARE, OTHER, SELFPAY ==
[2021-09-09] VITALS (29 sets, daily range): BP systolic 151–164; BP diastolic 55–101; PULSE 61–90; RESP 10–26; TEMP 36–36.4; O2SAT 90–99; BMI 26.2
--- NOTE | ~2021-09-09 | CT_ITS ---
EXAMINATION: CT brain wo con DATE: 09/09/2021 12:01 INDICATION: Intermittent left arm numbness TECHNIQUE: Computed tomography (CT) of the head was performed without intravenous contrast. Sagittal and coronal reconstructions were performed. The mA was adjusted according to patient size. Iterative reconstruction technique was employed. The dose-length product was 605.33 mGy-cm. COMPARISON: None FINDINGS: No acute intracranial hemorrhage, acute infarction or abnormal extra axial fluid collection. There is mild scattered white matter hypoattenuation consistent with chronic small vessel ischemic disease. S ymmetric prominence of the sulci consistent with mild age-appropriate diffuse cerebral volume loss. V entricles are normal and symmetric. No mass/mass effect. Changes of bilateral intraocular lens replac ement. And probable fat extends into an old fracture defect involving the right lamina papyracea. Mil d mucosal thickening the right maxillary sinus. Intracranial calcified cerebral atherosclerosis is no marjorie. IMPRESSION: 1. No acute intracranial process. 2. Age-related changes including mild diffuse volume loss and mild scattered white matter hypoattenua tion consistent with chronic small vessel ischemic disease. Reviewed, dictated and finalized at location A. IMPRESSION: 1. No acute intracranial process. 2. Age-related changes including mild diffuse volume loss and mild scattered wh ite matter hypoattenuation consistent with chronic small vessel ischemic diseas e.
--- NOTE | ~2021-09-09 | MR_ITS ---
EXAMINATION: MR brain/brain stem wo/w con DATE: 09/10/2021 11:48 INDICATION: Transient ischemic episode TECHNIQUE: Magnetic resonance imaging (MRI) of the brain and brainstem was performed without and with 17 mL Multihance intravenous contrast. Sequences included sagittal and axial T1-weighted SE, axial d iffusion-weighted FS SE, axial T2*-weighted GRE, axial T2-weighted FLAIR, and axial T2-weighted FSE. Postcontrast axial and coronal T1-weighted SE was obtained. Apparent diffusion coefficient (ADC) maps were created. COMPARISON: Head CT dated 09/09/2021 FINDINGS: There are no areas of restricted diffusion to suggest acute infarction. No intracranial hemorrhage or abnormal intracranial mass lesion. There are scattered areas of nonspecific increased T2-weighted si gnal intensity in the cerebral white matter, predominantly involving the deep and periventricular whi te matter. There are no intraparenchymal signal abnormalities seen on the other pulse sequences. The ventricles are symmetric and normal in size. There are no abnormal extra-axial fluid collections. Kristian w voids are seen in the cerebral arteries on the T2-weighted sequences consistent with their expected patency. Mild mucosal thickening in the bilateral ethmoid sinuses. Small amount of fat from the righ t orbit extends across a chronic blowout fracture of the right lamina papyracea. Changes of bilateral intraocular lens replacement. Visualized orbits and soft tissues are unremarkable. There are no are as of abnormal enhancement on the post contrast images. IMPRESSION: 1. No acute intracranial process. 2. Nonspecific periventricular predominant white matter T2 hyperintensity which is within normal limi ts for age and likely sequela of chronic small vessel ischemic disease. Reviewed, dictated and finalized at location A. IMPRESSION: 1. No acute intracranial process. 2. Nonspecific periventricular predominant white matter T2 hyperintensity which is within normal limits for age and likely sequela of chronic small vessel isc hemic disease.
--- NOTE | ~2021-09-09 | XR_ITS ---
EXAMINATION: XR chest 2V DATE: 09/09/2021 11:08 INDICATION: Left chest pain. TECHNIQUE: Frontal and lateral views of the chest were obtained. COMPARISON: None. FINDINGS: There is mild atelectasis in basilar right lower lobe. No pleural effusion or pneumothorax. The heart size is normal. There is mild chronic anterior wedging of midthoracic vertebral bodies. Th ere is an old healed fracture of right clavicle. IMPRESSION: 1. Mild atelectasis in basilar right lower lobe. Reviewed, dictated and finalized at location B.
--- NOTE | ~2021-09-09 | US_ITS ---
EXAMINATION: US carotid duplex BI DATE: 09/10/2021 13:25 INDICATION: Recurrent transient ischemic episode. Cerebral atherosclerosis. TECHNIQUE: Grayscale, color Doppler, and pulsed Doppler images of the cervical carotid arteries were obtained. The degree of vessel stenosis is placed in one of the following categories: normal, <50%, 5 0-69%, >=70% but less than near-occlusion, near-occlusion, or total occlusion. Note that percent sten osis relative to normal distal artery lumen diameter is indirectly measured from velocity measurement s as described by Justin, et al. Radiology 2003; 229:340-346. COMPARISON: None. FINDINGS: RIGHT: The right common carotid artery (CCA) peak systolic velocity (PSV) is 70 cm/s. The right internal car otid artery (ICA) PSV is 62 cm/s. The right ICA end-diastolic velocity (EDV) is 14 cm/s. The right IC A/CCA PSV ratio is 0.9. Grayscale and color Doppler images yield an estimate of <50% diameter reducti on from plaque in the ICA. The external carotid artery (ECA) PSV is 107 cm/s. There is antegrade flow in the right vertebral artery. LEFT: The left CCA PSV is 86 cm/s. The left ICA PSV is 106 cm/s. The left ICA EDV is 21 cm/s. The left ICA/ CCA PSV ratio is 1.2. Grayscale and color Doppler images yield an estimate of <50% diameter reduction from plaque in the ICA. The ECA PSV is 59 cm/s. There is antegrade flow in the left vertebral artery . IMPRESSION: 1. <50% stenosis in the right internal carotid artery. 2. <50% stenosis in the left internal carotid artery. Reviewed, dictated and finalized at location A.
--- NOTE | 2021-09-09 10:36 | ECG_ITS ---
Measurements Intervals [place] Rate: 70 P: 150 OR: 216 QRS: -27 QRSD: 156 T: 145 QT: 415 QTc: 450 Interpretive Statements SINUS RHYTHM WITH FIRST DEGREE AV BLOCK BORDERLINE LEFT AXIS DEVIATION [QRS AXIS < -20] RIGHT BUNDLE BRANCH BLOCK [120+ ms QRS DURATION, UPRIGHT V1, 40+ ms S IN I/aVL/V4/V5/V6] COMPARED TO ECG 02/10/2020 08:46:59 NO SIGNIFICANT CHANGE Electronically Signed On 09-09-2021 15:25:36 CDT by Pasquale Thompson M.D.
[2021-09-09 10:53] LABS: Alanine Aminotransferase 14 U/L (4-50); Alkaline Phosphatase 82 U/L (38-126); Anion Gap 8 mmol/L (8-16); Aspartate Amino Transferase 25 U/L (17-59); Bilirubin,Total 0.5 mg/dL (0.2-1.3); Blood Urea Nitrogen 18 mg/dL (9-20); Calcium 9.1 mg/dL (8.4-10.2); Carbon Dioxide 25 mmol/L (22-30); Chloride 104 mmol/L (98-107); Estimated CRCL calculation 53 ml/min; Estimated Glomerular Filt Rate > 60; Glucose 207 mg/dL (65-110); Lipase 47 U/L (23-300); Potassium 4.3 mmol/L (3.4-5.0); Sodium 137 mmol/L (137-145)
[2021-09-09 10:55] LABS: INR 1.1; Partial Thromboplastin Time 29.3 SECONDS (22.3-36.8); Prothrombin Time 13.6 Seconds (11.1-14.7)
--- NOTE | 2021-09-09 11:00 | PC.NURSE ---
Patient off unit to Radiology for chest xray.
[2021-09-09 11:06] LABS: Troponin I < 0.012 ng/mL (0.000-0.034)
[2021-09-09] MEDS: ASPIRIN 81 MG CHEWABLE TABLET 324 MG PO (11:10)
--- NOTE | 2021-09-09 11:30 | PC.NURSE ---
Dr Alves at bedside to assess pt.
[2021-09-09 11:48] LABS: Basophils Absolute Auto 0.1 K/mm3 (0.0-0.1); Basophils Percent Auto 0.9 % (0.2-1.2); Eosinophils Absolute Auto 0.2 K/mm3 (0-0.3); Eosinophils Percent Auto 1.5 % (0-4.4); Hematocrit 41.8 % (42.0-52.0); Hemoglobin 13.9 g/dL (14.0-18.0); Immature Granulocyte Absolute 0.04 K/mm3 (0.00-0.031); Immature Granulocyte Percent A 0.3 % (0-0.5); Lymphocytes Absolute Auto 4.02 K/mm3 (0.9-3.2); Lymphocytes Percent Auto 31.5 % (18.3-44.2); Mean Corpuscular HGB Conc 33.3 g/dl (32-36); Mean Corpuscular Hemoglobin 29.8 pg (26-34); Mean Corpuscular Volume 89.7 fl (80-100); Mean Platelet Volume 10.3 fl (7.4-10.4); Monocytes Absolute Auto 1.2 K/mm3 (0.1-0.6); Monocytes Percent Auto 9.2 % (2.6-8.5); Neutrophils Absolute Auto 7.2 K/mm3 (1.3-6.7); Neutrophils Percent Auto 56.6 % (45.5-73.1); Platelet Count Result 918 k/mm3 (150-375); Red Blood Count 4.66 M/mm3 (4.6-6.20); Red Cell Distribution Width 16.3 % (11.5-14.5); White Blood Count 12.8 K/mm3 (4.5-10.0)
--- NOTE | 2021-09-09 11:56 | ED.GENADULT ---
HPI - General Adult General Chief complaint: Chest Pain Stated complaint: left arm tingling and chest pain Time Seen by Provider: 09/09/21 10:55 Source: patient, family and RN notes reviewed Mode of arrival: ambulatory Limitations: no limitations History of Present Illness HPI narrative: 85-year-old male with history of diabetes, hypertension, coronary artery disease presenting to the emergency department for evaluation of intermittent left arm pain and numbness. Patient states intermittently over the last month he has been having left-sided arm numbness and left-sided chest pain that lasts about 10 to 15 minutes and resolves. Patient states this occurs every few days. Patient has not sought follow-up for this. Patient states approximately 5 years ago he did have a cardiac cath which did show some minor blockage but nothing that required a stent. Patient had been started on Plavix at the time but stopped taking it approximately 4 years ago due to bleeding during injuries. Any prior history of CVA. Related Data Home Medications Medication Instructions Recorded Confirmed aspirin 81 mg PO DAILY 02/06/20 09/09/21 lisinopril 20 mg DAILY 02/06/20 09/09/21 metformin 1,000 mg PO BID 02/06/20 09/09/21 atorvastatin 20 mg PO DAILY 09/09/21 09/09/21 Allergies Allergy/AdvReac Type Severity Reaction Status Date / Time No Known Allergies Allergy Verified 09/09/21 12:32 Review of Systems Review of Systems: CONSTITUTIONAL: Denies fever, chills, or sweats. EYES: Denies visual changes, redness, or discharge. ENT: Denies rhinorrhea, congestion, sore throat, or otalgia. CARDIOVASCULAR: Left arm pain that does radiate up into the left neck. RESPIRATORY: Denies cough or dyspnea. GASTROINTESTINAL: Denies abdominal pain, nausea, vomiting, or diarrhea. GENITOURINARY: Denies dysuria or hematuria. SKIN: Denies rash or itching. MUSCULOSKELETAL: Denies back pain, joint pain, or myalgia. NEUROLOGIC: See HPI PSYCHIATRIC: Denies anxiety or depression. All systems reviewed & are unremarkable except as noted in HPI and below PMFSH Past Medical History Medical History (Updated 09/09/21 @ 12:37 by Harry Alves MD) Diabetes HTN (hypertension) Joint pain Right rotator cuff tendonitis Urinary retention Wears glasses Surgical History Surgical History History of partial pancreatectomy Family History Family History (Updated 09/09/21 @ 17:00 by EMANUEL Pardo) Father Myocardial infarct Social History Social History Smoking packs per day: 1 Smoking cigarettes per day: 20.0 Years smoked: 20 Smoking pack-years: 20.00 Smoking status: Former smoker Second hand tobacco smoke exposure: Yes Additional smoking assessment comments: QUIT AGE 49 Alcohol intake: former Substance use: never Substance use type: does not use Other substance usage details: occasional glass of wine 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 HEAD: normocephalic, atraumatic. EYES: PERRLA/EOMI, conjunctivae clear. NOSE: Normal no drainage NECK: Supple. No adenopathy, no masses. RESPIRATORY: Airway patent, respirations nonlabored. Clear to auscultation bilaterally, no rales, rhonchi, wheezing. CARDIOVASCULAR: Regular rate and rhythm without murmurs rubs or gallops. ABDOMINAL: Soft, nontender, nondistended, normal bowel sounds MUSCULOSKELETAL: Moves all extremities. Strength/ROM intact, No edema, No calf tenderness. NEURO: Alert. Cranial nerves II through XII intact. Grossly intact. SKIN: Warm, dry. Normal Color PSYCHIATRIC: Normal affect/mood. Course Course Emergency Course: EKG shows right bundle branch similar to previous EKG.
--- NOTE | 2021-09-09 12:00 | PC.NURSE ---
Patient off unit to Radiology for Head CT.
[2021-09-09 14:15] LABS: Troponin I < 0.012 ng/mL (0.000-0.034)
--- NOTE | 2021-09-09 15:00 | PM.IMHP ---
H&P: HPI History of Present Illness Date/Time: 09/09/21 15:00 Chief Complaint: Left arm weakness and numbness. Narrative: This is a very pleasant 85-year-old male with hypertension, diabetes, and nonobstructive coronary artery disease who presented to the emergency department via private vehicle from home for evaluation of left arm weakness and numbness. He has had multiple episodes each week for the past month or so in which the left side of his face and left arm will go numb with difficulties coordinating movements with the left arm and slurred speech. These episodes have lasted upwards of 15 minutes before resolving. Yesterday he was working out in his shed when the symptoms returned and lasted for over 45 minutes. Initially he thought he had a pinched nerve causing the symptoms but because of the intermittent nature and how long it lasted yesterday, he decided to call his doctor and he was referred to the ER. Vital signs were stable on arrival though his blood pressures have been running high in the 150s to 160s systolic. Pertinent labs include a white blood cell count of 12.8, platelet count of 918, and a random glucose of 207. Brain CT showed no acute intracranial process and age-related changes including mild scattered white matter hypoattenuation consistent with chronic small-vessel ischemic disease. He is being admitted in this setting to further evaluate presumed recurrent TIAs. At the time my evaluation he feels just fine and has no specific complaints. He denies chest pain to me but apparently mentioned mild left-sided chest and shoulder discomfort to the ER physician. He has no knowledge of previous thrombocytosis and he denies headache, dizziness, lightheadedness vertigo, and visual changes. No exertional chest pain or shortness of breath. No sweats, nausea, or vomiting. Review of Systems Review of Systems: Twelve systems were reviewed. No headache. No neck pain. He denies exertional chest pain and shortness of breath. No palpitations. No nausea, vomiting, or diarrhea. Except as documented, all other systems were reviewed and are negative. [facility] Past Medical History Medical History (Updated 09/10/21 @ 02:26 by Rupal Mesa PA-C) Benign prostatic hyperplasia with urinary retention Bladder cancer Coronary artery disease Mild, nonobstructing disease noted on cardiac catheterization years ago, per patient report. Previously on Plavix but stopped due to easy bleeding years ago. Hypertension Pancreatitis Right rotator cuff tendonitis Type 2 diabetes mellitus Surgical History Surgical History (Updated 09/10/21 @ 02:22 by Rupal Mesa PA-C) History of cardiac catheterization History of partial pancreatectomy Family History Family History Father Myocardial infarct Social History Social History (Updated 09/10/21 @ 02:23 by Rupal Mesa PA-C) Social History: Surrogate decision maker: Lenore Nichole, spouse. Code status: Full code. Smoking packs per day: 1 Smoking cigarettes per day: 20.0 Years smoked: 20 Smoking pack-years: 20.00 Smoking status: Former smoker Second hand tobacco smoke exposure: Yes Additional smoking assessment comments: Quit at age 49. Alcohol intake: former Substance use: never Substance use type: does not use Other substance usage details: Occasional glass of wine. 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
--- NOTE | 2021-09-09 15:49 | PC.NURSE ---
Patient ambulated to BR with steady gait.
[2021-09-09] MEDS: lisinopriL 20 MG TABLET PO (15:55)
[2021-09-09 18:12] LABS: Troponin I < 0.012 ng/mL (0.000-0.034)
[2021-09-09] MEDS: CLOPIDOGREL BISULFATE 75 MG TABLET PO (21:15)
[2021-09-10] VITALS (10 sets, daily range): BP systolic 125–169; BP diastolic 80–96; PULSE 62–82; RESP 16–18; TEMP 36.1–36.4; O2SAT 94–97
--- NOTE | 2021-09-10 02:30 | ECHO_ITS ---
Patient Info Name: Geovanni Nichole Age: 85 years : 1935 Gender: Male Ht: 71 in Wt: 187 lbs BSA: 2.07 m2 HR: 78 bpm BP: 125 Heart Rhythm: Sinus Rhythm Technical Quality: Fair Exam Date: 09/10/2021 10:50 AM Exam Location: [facility] Exam Room: 210 Patient Status: Inpatient Admit Date: 09/09/2021 Staff Ordering Physician: Rupal Mesa PA-C Jewel Bearing Maker: Estee Pratt RDCS Attending Provider: Ester Alfonso M.A., MD Referring Physician: Moshe GOLDSTEIN; Exam Type: CA echo doppler w bubble study Study Info Indications - HTN TIA Complete two-dimensional, color flow and Doppler transthoracic echocardiogram is performed with agitated saline. Contrast/Agitated Saline Contrast/Ag. Saline: Agitated Saline Amount: 20.00 ml Existing IV Access: Yes IV Access Condition: patent with no signs of infiltration Summary 1. Left ventricular chamber dimension is normal. 2. Left ventricular systolic function is normal, estimated at 60-65%. 3. There is mild aortic valve sclerosis. 4. Agitated saline contrast injection demonstrates no intracardiac shunt. 5. No likely/apparent cardioembolic source was identified. Left Ventricle Left ventricular chamber dimension is normal. Left ventricular systolic function is normal, estimated at 60-65%. The left ventricular diastolic function is grade I diastolic dysfunction. Left Atria Left atrial chamber dimension is normal. Right Atria Right atrial chamber dimension is normal. Atrial Septum Intact interatrial septum visualized by agitated saline imaging. Aortic Valve The aortic valve is trileaflet. There is mild aortic valve sclerosis. Pulmonic Valve The pulmonic valve is not well visualized. Mitral Valve The mitral valve has normal leaflets. Tricuspid Valve The tricuspid valve leaflets are normal. Pericardium/Pleural The pericardium appears normal. Aorta The aortic root size at the sinus of Valsalva is normal. Left Ventricular Outflow Tract Name Value Normal LVOT 2D LVOT Diameter 2.1 cm LVOT Doppler LVOT Peak Gradient 4 mmHg LVOT Mean Gradient 2 mmHg LVOT VTI 18 cm LVOT VTI/AV VTI Ratio 0.8 LVOT Stroke Volume 66 ml LVOT CO 15.2 l/min LVOT CI 7.3 l/min/m2 Pulmonic Valve Name Value Normal PV Doppler PV Peak Gradient 3 mmHg Mitral Valve Name Value Normal MV Doppler
[2021-09-10 05:01] LABS: Hematocrit 41.2 % (42.0-52.0); Hemoglobin 13.7 g/dL (14.0-18.0); Mean Corpuscular HGB Conc 33.3 g/dl (32-36); Mean Corpuscular Hemoglobin 29.5 pg (26-34); Mean Corpuscular Volume 88.8 fl (80-100); Mean Platelet Volume 9.7 fl (7.4-10.4); Platelet Count Result 856 k/mm3 (150-375); Red Blood Count 4.64 M/mm3 (4.6-6.20); Red Cell Distribution Width 16.3 % (11.5-14.5); White Blood Count 13.1 K/mm3 (4.5-10.0)
[2021-09-10 05:12] LABS: Alanine Aminotransferase 13 U/L (4-50); Alkaline Phosphatase 80 U/L (38-126); Anion Gap 8 mmol/L (8-16); Aspartate Amino Transferase 30 U/L (17-59); Bilirubin,Total 0.7 mg/dL (0.2-1.3); Blood Urea Nitrogen 18 mg/dL (9-20); Calcium 8.9 mg/dL (8.4-10.2); Carbon Dioxide 24 mmol/L (22-30); Chloride 107 mmol/L (98-107); Cholesterol 147 mg/dL (0-200); Estimated CRCL calculation 53 ml/min; Estimated Glomerular Filt Rate > 60; Glucose 147 mg/dL (65-110); HDL Direct 43 mg/dL; Magnesium 1.9 mg/dL (1.6-2.3); Potassium 4.2 mmol/L (3.4-5.0); Sodium 139 mmol/L (137-145); Triglycerides 106 mg/dL (<150)
[2021-09-10 05:23] LABS: LDL Cholesterol Direct 64 mg/dL
[2021-09-10] MEDS: metFORMIN HCL 500 MG TABLET 1000 MG PO ×2 (08:22→17:22)
[2021-09-10] MEDS: ASPIRIN 81 MG ENTERIC TABLET PO (08:23)
[2021-09-10] MEDS: lisinopriL 20 MG TABLET BY MOUTH (08:23)
[2021-09-10] MEDS: ATORVASTATIN 20 MG TABLET PO (08:23)
[2021-09-10 10:29] LABS: Glucose Point of Care 161 mg/dl (65-105)
[2021-09-10 12:26] LABS: Glucose Point of Care 124 mg/dl (65-105)
--- NOTE | 2021-09-10 12:36 | PM.DS ---
DS: Admitting Diagnosis Discharge Date 09/10/2021 Admitting Diagnosis Left arm weakness DS: Discharge Diagnosis Discharge Diagnosis (1) Transient ischemic attack: Code(s): G45.9 - Transient cerebral ischemic attack, unspecified Status: Acute Assessment and Plan: It seems as though the patient has had recurrent TIAs over the past month. He was given aspirin 324 mg x 1 in the emergency department and I will also start him on clopidogrel 75 mg daily. He will be monitored on telemetry overnight and neurologic checks will be performed q.4 hours. Brain MRI, echocardiogram, and carotid Doppler ultrasounds have been ordered for further evaluation. Dr. Masters was consulted by the ED physician and his input is appreciated. (2) Thrombocytosis: Code(s): D75.839 - Thrombocytosis, unspecified Status: Acute Assessment and Plan: Platelets are quite elevated and may be contributing to his symptoms. Dr. Jasmine consulted and his input is appreciated. (3) Hypertension: Code(s): I10 - Essential (primary) hypertension Status: Acute Assessment and Plan: Blood pressures were reviewed and they have been running in the 150s to 160s systolic. Not high enough to require immediate treatment in light of his neurologic symptoms. For now will continue with lisinopril 20 mg daily and monitor closely. Adjustments will be made accordingly should he continue to trend high. (4) Type 2 diabetes mellitus: Code(s): E11.9 - Type 2 diabetes mellitus without complications Status: Acute Assessment and Plan: Random glucose today was 207. Initiate sliding scale insulin, Accu-Cheks, and hypoglycemic protocol. Check A1c. (5) Coronary artery disease: Code(s): I25.10 - Atherosclerotic heart disease of morongo coronary artery without angina pectoris Status: Inactive Assessment and Plan: Mild nonobstructing disease noted on prior catheterization, per patient report. Continue baby aspirin and statin. Previously on Plavix which has also been resumed. DS: Summary Hospital Course Hospital Course: Pleasant 85-year-old male with hypertension, diabetes, and nonobstructive coronary artery disease who presented to the emergency department via private vehicle from home for evaluation of left arm weakness and numbness. He has had multiple episodes each week for the past month or so in which the left side of his face and left arm will go numb with difficulties coordinating movements with the left arm and slurred speech. These episodes have lasted upwards of 15 minutes before resolving. Yesterday he was working out in his shed when the symptoms returned and lasted for over 45 minutes. Initially he thought he had a pinched nerve causing the symptoms but because of the intermittent nature and how long it lasted yesterday, he decided to call his doctor and he was referred to the ER. Vital signs were stable on arrival though his blood pressures have been running high in the 150s to 160s systolic. Pt would like to go home as soon as possible, pt had ct head mri head and us carotids fairly unremarkable. Pt seen by DR Jackson and is stable for DC with follow up in the neurology office. ? PN of left arm. Or TIA symptoms given his history of DM, elevated HTN and CAD. Time Spent with Patient Time attestation: Total time spent providing and/or coordinating discharge services:45 minutes on day of discharge Exam Narrative: General: Well-developed elderly gentleman sitting up in bed in no distress. Neck: Supple. No carotid bruits. Respiratory: Lungs are clear to auscultation bilaterally. Cardiovascular: Regular rate and rhythm with S1-S2. Gastrointestinal: Abdomen is soft, nontender, and nondistended with positive bowel sounds. Skin: Warm and dry. No rash or lesions on limited exam. Extremities: No cyanosis, clubbing, or edema. Radial and pedal pulses intact. Neurological: Alert and oriented. Cranial n
--- NOTE | 2021-09-10 12:51 | WPDNEURCNPN ---
Assessment and Plan Additional Plan 1 TIA rule out the possibility of subcortical stroke 2. Hypertension 3. Diabetes mellitus 4. History of coronary artery disease Consult date: 09/10/21 HPI: Geovanni Nichole Jr. is a 85 year old male admitted to the hospital through the emergency room for the complaints of chest pain with tingling sensation in left upper extremity as well patient came to the emergency room in ambulatory condition with no obvious limitation but reported experiencing left upper extremity numbness over the last 4 weeks intermittently along with the chest pain lasting for at least 10 to 15 minutes and recurring every few days patient reportedly had a cardiac cath about 5 years ago but did not require stenting was started on Plavix which was stopped about 4 years ago, has been taking aspirin 81 mg daily lisinopril 20 mg daily metformin 1000 mg twice a day and atorvastatin 20 mg daily, does carry the diagnosis of hypertension, diabetes mellitus, with history of years smoked 20 pack-years 20 but former smoker quit at the age of 49 and also former alcohol intake, initial physical examination normal, initial EKG with right bundle branch block but no changes compared to previous EKG and admitted with the diagnosis of TIA, routine lab normal with blood sugar [address] of the head Review of Systems Review of Systems: All systems reviewed & are unremarkable except as noted in HPI and below PMFSH Past Medical History Medical History Benign prostatic hyperplasia with urinary retention Bladder cancer Coronary artery disease Mild, nonobstructing disease noted on cardiac catheterization years ago, per patient report. Previously on Plavix but stopped due to easy bleeding years ago. Hypertension Pancreatitis Right rotator cuff tendonitis Type 2 diabetes mellitus Surgical History Surgical History History of cardiac catheterization History of partial pancreatectomy Family History Family History Father Myocardial infarct Social History Social History Social History: Surrogate decision maker: Lenore Nichole, spouse. Code status: Full code. Smoking packs per day: 1 Smoking cigarettes per day: 20.0 Years smoked: 20 Smoking pack-years: 20.00 Smoking status: Former smoker Second hand tobacco smoke exposure: Yes Additional smoking assessment comments: Quit at age 49. Alcohol intake: former Substance use: never Substance use type: does not use Other substance usage details: Occasional glass of wine. 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 Meds Home Medications and Allergies Home Medications Medication Instructions Recorded Confirmed Type aspirin 81 mg PO DAILY 02/06/20 09/09/21 History lisinopril 20 mg DAILY 02/06/20 09/09/21 History metformin 1,000 mg PO BID 02/06/20 09/09/21 History atorvastatin 20 mg PO DAILY 09/09/21 09/09/21 History Allergies Allergy/AdvReac Type Severity Reaction Status Date / Time No Known Allergies Allergy Verified 09/09/21 12:32 Vital Signs Vital Signs - 24 hr 09/09/21 13:01 09/09/21 13:15 09/09/21 13:30 Temperature Pulse Rate 69 70 80 Respiratory Rate 25 H 24 H 23 H Blood Pressure Pulse Oximetry 97 09/09/21 13:45 09/09/21 14:07 09/09/21 14:17 Temperature Pulse Rate 74 65 68 Respiratory Rate 19 10 L 12 Blood Pressure Pulse Oximetry 97 98 96 09/09/21 14:28 09/09/21 14:30 09/09/21 14:32 Temperature Pulse Rate 67 68 68 Respiratory Rate 22 H 19 20 Blood Pressure 164/98 H Pulse Oximetry 97 97 09/09/21 14:45 09/09/21 15:00 09/09/21 15:38 Temperature Pulse Rate 68 65 74 Respiratory Rate 18 14 22 H Blood Pressure P
[2021-09-10 17:33] LABS: Glucose Point of Care 91 mg/dl (65-105)
== END 2021-09-10 17:40 | disposition home or self-care (01) ==
LOC: ANHED 12:37 → ANHIMU 09-10 12:36
PROVIDERS: Physician Assistant; Admitting Provider Internal Medicine; Emergency Provider Emergency Medicine; PCP Internal Medicine; Visit Provider Family Medicine
DX: G45.9 Transient cerebral ischemic attack, unspecified (principal); D75.839 Thrombocytosis, unspecified; R07.9 Chest pain, unspecified; I10 Essential (primary) hypertension; E11.9 Type 2 diabetes mellitus without complications; I35.8 Other nonrheumatic aortic valve disorders; I25.10 Atherosclerotic heart disease of native coronary artery without angina pectoris; N40.1 Benign prostatic hyperplasia with lower urinary tract symptoms; R33.8 Other retention of urine; Z95.5 Presence of coronary angioplasty implant and graft; Z79.82 Long term (current) use of aspirin; Z90.411 Acquired partial absence of pancreas; Z87.891 Personal history of nicotine dependence; Z85.51 Personal history of malignant neoplasm of bladder; Z79.84 Long term (current) use of oral hypoglycemic drugs
CPT/HCPCS: 36415; 70450; 70553; 71046; 80053; 80061; 82607; 82948; 83036; 83690; 83735; 84443; 84484; 85025; 85027; 85610; 85730; 93005; 93306; 93880; 96375; 97161; 97165; 99285; A9270; A9577; G0378

== ENCOUNTER 2022-04-19 01:03 | Day surgery (SDC) | payer MEDICARE, OTHER, SELFPAY ==
[2022-04-03 15:00] VITALS: BMI 26.4
--- NOTE | 2022-04-18 13:51 | PM.HPGS ---
History of Present Illness History of Present Illness Consent: Risks, benefits, and alternatives have been discussed and questions answered. Patient agrees to proceed with procedure. Chief complaint: Hx of colon polyps Narrative: Geovanni Nichole is a 86 year old male referred for colon cancer screening. He had 4 adenomatous polyps removed about 5 years ago Review of Systems Review of Systems: All systems reviewed & are unremarkable except as noted in HPI and below PMFSH Past Medical History Medical History Benign prostatic hyperplasia with urinary retention Bladder cancer Error - biopsy was benign. 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 Previously on Plavix but stopped due to easy bleeding years ago. 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 Code status: Full code. Smoking packs per day: 1 Smoking cigarettes per day: 20.0 Years smoked: 20 Smoking pack-years: 20.00 Smoking status: Former smoker Second hand tobacco smoke exposure: Yes Additional smoking assessment comments: Quit at age 49. Alcohol intake: never Substance use: never Substance use type: does not use Other substance usage details: Occasional glass of wine. 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 patient): Male 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 Meds Home Medications and Allergies Home Medications Medication Instructions Recorded Confirmed Type lisinopril 20 mg tablet 20 mg DAILY 02/06/20 04/19/22 History metformin 500 mg tablet 1,000 mg PO BID 02/06/20 04/19/22 History atorvastatin 20 mg tablet 20 mg PO DAILY 09/09/21 04/19/22 History aspirin 325 mg capsule 325 mg PO DAILY #30 caps 09/10/21 04/19/22 Rx blood sugar diagnostic (Blood #100 ea 01/06/22 04/03/22 Rx Glucose Test strips) mecobalamin (vitamin B12) 1,000 2,000 mcg PO DAILY 02/07/22 04/19/22 History mcg lozenges Allergies Allergy/AdvReac Type Severity Reaction Status Date / Time No Known Allergies Allergy Verified 04/19/22 10:16 Exam Resp: Auscultation: clear to auscultation bilaterally Cardio: Rate: regular rate Rhythm: regular rhythm GI: GI Palp: Yes Soft to palpation and No Tenderness to palpation present (GI) Assessment and Plan Assessment and plan (1) Screening for colon cancer: Code(s): Z12.11 - Encounter for screening for malignant neoplasm of colon Status: Acute Assessment and Plan: Colonoscopy with possible biopsy or polypectomy or cautery or injection of substances.
--- NOTE | 2022-04-19 08:34 | WPDANESEPPF ---
Anes - Initial Pre Proc Eval Procedure: Operation Date: 04/19/22 11:30 Proposed Procedures p Screening Colonoscopy - Homero Gamble MD Date/Time: 04/19/22 08:34 Surgeon: Homero Gamble MD Pre Op Diagnosis: Hx of colon polyps Patient Data Age: 86 Gender: M Height: 1.8 m Weight: 86 kg Allergies Allergy/AdvReac Type Severity Reaction Status Date / Time No Known Allergies Allergy Verified 04/19/22 10:16 Home Medications Medication Instructions Recorded Confirmed Type lisinopril 20 mg tablet 20 mg DAILY 02/06/20 04/19/22 History metformin 500 mg tablet 1,000 mg PO BID 02/06/20 04/19/22 History atorvastatin 20 mg tablet 20 mg PO DAILY 09/09/21 04/19/22 History aspirin 325 mg capsule 325 mg PO DAILY #30 caps 09/10/21 04/19/22 Rx blood sugar diagnostic (Blood #100 ea 01/06/22 04/03/22 Rx Glucose Test strips) mecobalamin (vitamin B12) 1,000 2,000 mcg PO DAILY 02/07/22 04/19/22 History mcg lozenges Patient hx anesthesia problems: none Family hx anesthesia problems: none Results Review: All pre-operative results and documents have been reviewed as part of the pre-operative evaluation. [facility] Past Medical History Medical History (Updated 02/24/22 @ 15:47 by Jasmin Martinez PA-C) Benign prostatic hyperplasia with urinary retention Bladder cancer Error - biopsy was benign. 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 Previously on Plavix but stopped due to easy bleeding years ago. 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 Code status: Full code. Smoking packs per day: 1 Smoking cigarettes per day: 20.0 Years smoked: 20 Smoking pack-years: 20.00 Smoking status: Former smoker Second hand tobacco smoke exposure: Yes Additional smoking assessment comments: Quit at age 49. Alcohol intake: never Substance use: never Substance use type: does not use Other substance usage details: Occasional glass of wine. 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 Informed Consent: The patient's anesthetic plan and its attendant risks and benefits were discussed with the patient/family/POA. Questions were solicited and answers provided to the satisfaction of the patient/family/POA.
[2022-04-19 10:17] LABS: Glucose Point of Care 117 mg/dl (65-105)
[2022-04-19 10:18] VITALS: BP 153/84; PULSE 83; RESP 18; TEMP 36.3; O2SAT 99
[2022-04-19] MEDS: LACTATED RINGERS 1,000 ML 150 ML IV CONT (10:23)
[2022-04-19 11:43] VITALS: BP 94/61; PULSE 66; RESP 18; O2SAT 96
[2022-04-19 11:53] VITALS: BP 118/66; PULSE 68; RESP 17; O2SAT 96
[2022-04-19 12:03] VITALS: BP 126/81; PULSE 62; RESP 18; O2SAT 96
== END 2022-04-19 12:21 | disposition home or self-care (01) ==
PROVIDERS: PCP Physician Assistant Medical; Visit Provider Internal Medicine Gastroenterology
PROC: 0DJD8ZZ Inspection of Lower Intestinal Tract, Via Natural or Artificial Opening Endoscopic (ICD-10-PCS; CPT 45378; principal; 2022-04-19 11:30)
DX: Z12.11 Encounter for screening for malignant neoplasm of colon (principal); K57.30 Diverticulosis of large intestine without perforation or abscess without bleeding; Z86.010 Personal history of colon polyps; I10 Essential (primary) hypertension; I25.10 Atherosclerotic heart disease of native coronary artery without angina pectoris; E11.9 Type 2 diabetes mellitus without complications; Z86.73 Personal history of transient ischemic attack (TIA), and cerebral infarction without residual deficits; Z90.81 Acquired absence of spleen; Z90.411 Acquired partial absence of pancreas; Z87.891 Personal history of nicotine dependence; Z79.84 Long term (current) use of oral hypoglycemic drugs
CPT/HCPCS: G0105; 82948; J2704; J7120

== ENCOUNTER 2023-03-27 15:49 | Outpatient (CLI) | payer MEDICARE, SELFPAY ==
[2023-03-27 16:01] LABS: Hematocrit 42.5 % (42.0-52.0); Hemoglobin 14.3 g/dL (14.0-18.0); Mean Corpuscular HGB Conc 33.6 g/dl (32-36); Mean Corpuscular Hemoglobin 29.1 pg (26-34); Mean Corpuscular Volume 86.6 fl (80-100); Mean Platelet Volume 10.4 fl (7.4-10.4); Platelet Count Result 605 k/mm3 (150-375); Red Blood Count 4.91 M/mm3 (4.6-6.20); Red Cell Distribution Width 16.5 % (11.5-14.5); White Blood Count 14.9 K/mm3 (4.5-10.0)
[2023-03-27 16:07] LABS: Atypical Lymphocytes Present; Band Neutrophils Percent 1 % (0-6); Crenated RBC 1+ (NORMAL); Eosinophils Absolute Manual 0.29 K/mm3 (0.02-0.5); Eosinophils Percent Manual 2 % (0-4); Lymphocytes Absolute Manual 5.21 K/mm3 (1.1-4.5); Monocytes Absolute Manual 0.74 K/mm3 (0.1-0.90); Monocytes Percent Manual 5 % (3-9); Neutrophils Absolute Manual 8.64 K/mm3 (1.3-6.7); Neutrophils Percent Manual 57 % (46-73); Platelet Estimate Increased (Adequate); Schistocytes None Seen (NORMAL); Total Cells Counted 100
[2023-03-27 16:08] LABS: Poikilocytosis 1+ (NORMAL)
[2023-03-27 16:44] LABS: Alanine Aminotransferase 16 U/L (6-50); Albumin Level 4.4 g/dL (3.5-5.1); Alkaline Phosphatase 87 U/L (38-126); Anion Gap 11 mmol/L (8-16); Aspartate Amino Transferase 45 U/L (17-59); Bilirubin,Total 0.6 mg/dL (0.2-1.3); Blood Urea Nitrogen 17 mg/dL (9-20); Calcium 9.6 mg/dL (8.4-10.2); Carbon Dioxide 24 mmol/L (22-30); Chloride 106 mmol/L (98-107); Estimated Glomerular Filt Rate 52; Glucose 117 mg/dL (65-110); Potassium 4.3 mmol/L (3.4-5.0); Sodium 141 mmol/L (137-145)
[2023-03-30 13:05] LABS: Erythropoietin (EPO) 9.4 mIU/mL (2.6-18.5)
== END 2023-03-27 15:50 | disposition home or self-care (01) ==
LOC: ANHLAB 15:51
PROVIDERS: PCP Physician Assistant Medical; Visit Provider Internal Medicine Hematology & Oncology
DX: D72.829 Elevated white blood cell count, unspecified (principal); D47.3 Essential (hemorrhagic) thrombocythemia
CPT/HCPCS: 36415; 80053; 82668; 85025

== ENCOUNTER 2023-04-19 08:34 | Outpatient (CLI) | payer MEDICARE, SELFPAY ==
[2023-04-19 09:01] LABS: Basophils Absolute Auto 0.2 K/mm3 (0.0-0.1); Basophils Percent Auto 1.4 % (0.2-1.2); Eosinophils Absolute Auto 0.3 K/mm3 (0-0.3); Eosinophils Percent Auto 2.3 % (0-4.4); Hematocrit 42.6 % (42.0-52.0); Hemoglobin 14.3 g/dL (14.0-18.0); Immature Granulocyte Absolute 0.03 K/mm3 (0.00-0.031); Immature Granulocyte Percent A 0.2 % (0-0.5); Lymphocytes Absolute Auto 4.15 K/mm3 (0.9-3.2); Mean Corpuscular HGB Conc 33.6 g/dl (32-36); Mean Corpuscular Hemoglobin 29.9 pg (26-34); Mean Corpuscular Volume 88.9 fl (80-100); Mean Platelet Volume 9.9 fl (7.4-10.4); Monocytes Absolute Auto 1.3 K/mm3 (0.1-0.6); Monocytes Percent Auto 10.2 % (2.6-8.5); Neutrophils Absolute Auto 6.7 K/mm3 (1.3-6.7); Neutrophils Percent Auto 52.9 % (45.5-73.1); Platelet Count Result 878 k/mm3 (150-375); Red Blood Count 4.79 M/mm3 (4.6-6.20); Red Cell Distribution Width 18.2 % (11.5-14.5); White Blood Count 12.6 K/mm3 (4.5-10.0)
[2023-04-19 10:34] LABS: Alanine Aminotransferase 17 U/L (6-50); Albumin Level 4.1 g/dL (3.5-5.1); Alkaline Phosphatase 82 U/L (38-126); Anion Gap 9 mmol/L (8-16); Aspartate Amino Transferase 22 U/L (17-59); Bilirubin,Total 0.6 mg/dL (0.2-1.3); Blood Urea Nitrogen 15 mg/dL (9-20); Calcium 9.6 mg/dL (8.4-10.2); Carbon Dioxide 25 mmol/L (22-30); Chloride 106 mmol/L (98-107); Estimated Glomerular Filt Rate > 60; Glucose 133 mg/dL (65-110); Potassium 4.4 mmol/L (3.4-5.0); Sodium 140 mmol/L (137-145)
[2023-04-22 11:36] LABS: Erythropoietin (EPO) 7.3 mIU/mL (2.6-18.5)
[2023-04-24 11:13] LABS: BCR/abl Prior Result Not Given
[2023-04-24 12:01] LABS: BCR/abl P190 Not Detected; BCR/abl P210 Not Detected
[2023-04-24 12:02] LABS: BCR/abl P190 Chg YES; BCR/abl P210 Chg YES
[2023-04-25 09:24] LABS: Block/Specimen ID Not Given; Exon 14; Gene JAK2; JAK2 V617F Mutation Detected (Not Detected); Mutation Frequency 6.6; Mutation Type missense; Specimen Source Blood
== END 2023-04-19 08:35 | disposition home or self-care (01) ==
PROVIDERS: PCP Physician Assistant Medical; Visit Provider Internal Medicine Hematology & Oncology
DX: D72.829 Elevated white blood cell count, unspecified (principal); D47.3 Essential (hemorrhagic) thrombocythemia
CPT/HCPCS: 36415; 80053; 81206; 81207; 81270; 82668; 85025; 88184

== ENCOUNTER 2023-05-03 11:39 | Outpatient (CLI) | payer MEDICARE, SELFPAY ==
[2023-05-03 11:51] LABS: Hematocrit 41.9 % (42.0-52.0); Hemoglobin 14.2 g/dL (14.0-18.0); Mean Corpuscular HGB Conc 33.9 g/dl (32-36); Mean Corpuscular Hemoglobin 30.2 pg (26-34); Mean Corpuscular Volume 89.1 fl (80-100); Mean Platelet Volume 10.1 fl (7.4-10.4); Platelet Count Result 822 k/mm3 (150-375); Red Cell Distribution Width 18.1 % (11.5-14.5); White Blood Count 15.2 K/mm3 (4.5-10.0)
== END 2023-05-03 11:40 | disposition home or self-care (01) ==
LOC: ANHLAB 11:40
PROVIDERS: PCP Physician Assistant Medical; Visit Provider Internal Medicine Hematology & Oncology
DX: D47.3 Essential (hemorrhagic) thrombocythemia (principal)
CPT/HCPCS: 36415; 85027

== ENCOUNTER 2023-05-29 10:31 | Outpatient (CLI) | payer MEDICARE, SELFPAY ==
[2023-05-29 10:44] LABS: Hematocrit 42.4 % (42.0-52.0); Hemoglobin 14.3 g/dL (14.0-18.0); Mean Corpuscular HGB Conc 33.7 g/dl (32-36); Mean Corpuscular Volume 88.9 fl (80-100); Mean Platelet Volume 9.8 fl (7.4-10.4); Platelet Count Result 1006 k/mm3 (150-375); Red Blood Count 4.77 M/mm3 (4.6-6.20); Red Cell Distribution Width 17.7 % (11.5-14.5); White Blood Count 14.6 K/mm3 (4.5-10.0)
[2023-05-29 10:49] LABS: Blood Urea Nitrogen 23 mg/dL (8-26); Carbon Dioxide 25 mmol/L (22-30); Chloride 103 mmol/L (98-109); Estimated Glomerular Filt Rate 48; Glucose 178 mg/dL (70-105); Ionized Calcium (POC) 1.27 mmol/L (1.11-1.31); Potassium 4.6 mmol/L (3.5-4.9); Sodium 140 mmol/L (138-146)
== END 2023-05-29 10:32 | disposition home or self-care (01) ==
LOC: ANHLAB 10:32
PROVIDERS: PCP Physician Assistant Medical; Visit Provider Internal Medicine Hematology & Oncology
DX: D47.3 Essential (hemorrhagic) thrombocythemia (principal)
CPT/HCPCS: 36415; 80047; 85027

== ENCOUNTER 2023-12-26 08:00 | Outpatient (CLI) | payer MEDICARE, SELFPAY ==
--- NOTE | ~2023-12-26 | MR_ITS ---
EXAMINATION: MR brain/brain stem wo/w con DATE: 12/26/2023 09:08 INDICATION: Transient cerebral ischemic attack, unspecified. TECHNIQUE: Magnetic resonance imaging (MRI) of the brain and brainstem was performed without and with 16 mL MultiHance intravenous contrast. COMPARISON: Brain MRI 09/10/2021, head CT 09/09/2021 FINDINGS: There are scattered areas of nonspecific increased T2-weighted signal intensity in the cere bral white matter. There is a small acute infarct in the left parietal lobe deep white matter. There is no intracranial hemorrhage or abnormal mass lesion. The ventricles are normal in size. There are l ikely changes of ocular lens replacement surgeries. There is an old blowout fracture of medial wall o f right orbit. There is a chronic foreign body in the frontal scalp. There is mucosal thickening in t he ethmoid sinuses. The mastoid air cells are normal. IMPRESSION: 1. 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 2. Stable moderate nonspecific cerebral white matter disease, which likely represents chronic small v essel ischemic disease. Reviewed, dictated and finalized at location A. IMPRESSION: 1. 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 2. Stable moderate nonspecific cerebral white matter disease, which likely repr esents chronic small vessel ischemic disease.
--- NOTE | ~2023-12-26 | MR_ITS ---
EXAMINATION: MRA brain wo con DATE: 12/26/2023 09:09 INDICATION: Transient cerebral ischemic attack, unspecified. TECHNIQUE: Magnetic resonance angiography (MRA) of the brain was performed without intravenous contra st with T1-weighted SPGR by the 3D [id number] technique. Maximum intensity projection 3D-reconstr uctions were obtained. COMPARISON: Brain MRI 09/10/2021 FINDINGS: The vertebral arteries are codominant. There is no significant stenosis of the basilar artery or the posterior cerebral arteries. There is no significant stenosis of the intracranial internal carotid ar teries or anterior or middle cerebral arteries. Anterior communicating artery is normal. The posterio r communicating arteries are normal. There is no aneurysm. IMPRESSION: 1. Normal MRA. Reviewed, dictated and finalized at location A. IMPRESSION: 1. Normal MRA.
== END 2023-12-26 08:01 | disposition home or self-care (01) ==
PROVIDERS: PCP Physician Assistant Medical; Visit Provider Physician Assistant Medical
DX: D75.839 Thrombocytosis, unspecified (principal); I10 Essential (primary) hypertension; R20.2 Paresthesia of skin; G45.9 Transient cerebral ischemic attack, unspecified; R90.82 White matter disease, unspecified
CPT/HCPCS: 70544; 70553; A9577

== ENCOUNTER 2024-01-25 12:41 | Outpatient (CLI) | payer MEDICARE, SELFPAY ==
--- NOTE | ~2024-01-25 | CT_ITS ---
EXAMINATION: CTA brain carotid DATE: 01/25/2024 13:30 INDICATION: Transient cerebral ischemic attack, unspecified. TECHNIQUE: Computed tomographic angiography (CTA) of the head was performed without and with 100 mL O mnipaque-350 intravenous contrast. CTA of the neck was performed with intravenous contrast. Automated exposure control and iterative reconstruction technique were employed. The dose-length product was 1 692.94 mGy-cm. Maximum intensity projection and volume rendered 3D-reconstructions were created by adolph dotson technologist on a separate workstation. COMPARISON: Head CT 09/09/2021, brain MRI 12/26/2023 FINDINGS: HEAD CTA: There are scattered areas of low attenuation in the cerebral white matter. There is no intr acranial hemorrhage, acute infarction, or abnormal intracranial mass lesion. The ventricles are emerald l in size. There is an old blowout fracture of medial wall of right orbit. There is mild mucosal thic kening in the paranasal sinuses. There are likely changes of ocular lens replacement surgeries. The m astoid air cells are normal. The vertebral arteries are codominant. There is no significant stenosis of basilar artery or the posterior cerebral arteries. There is no significant stenosis of the intracr anial internal carotid arteries or anterior or middle cerebral arteries. Anterior communicating arter y is normal. There is no aneurysm. The posterior communicating arteries are normal. NECK CTA: There is moderate emphysema. There is mild scarring at the lung apices. There are no pathol ogically enlarged lymph nodes. There is no significant stenosis of the vertebral arteries. There is p laque in the proximal internal carotid arteries. There is 0% stenosis of the proximal right internal carotid artery relative to normal distal artery lumen diameter (NASCET criteria). There is 0% stenosi s of the proximal left internal carotid artery relative to normal distal artery lumen diameter. There is severe cervical spondylosis. There is mild chronic height loss of C5 and T4 vertebral bodies. IMPRESSION: 1. Moderate nonspecific cerebral white matter disease, which likely represents chronic small vessel i schemic disease. 2. No aneurysm or significant intracranial arterial stenosis. 3. 0% stenosis of the proximal internal carotid arteries relative to normal distal artery lumen diame ters (NASCET criteria). Reviewed, dictated and finalized at location A. IMPRESSION: 1. Moderate nonspecific cerebral white matter disease, which likely represents chronic small vessel ischemic disease. 2. No aneurysm or significant intracranial arterial stenosis. 3. 0% stenosis of the proximal internal carotid arteries relative to normal dis jeniffer artery lumen diameters (NASCET criteria).
[2024-01-25 13:14] LABS: Estimated Glomerular Filt Rate 52
== END 2024-01-25 12:42 | disposition home or self-care (01) ==
PROVIDERS: PCP Physician Assistant Medical; Visit Provider Psychiatry & Neurology Neurology
DX: G45.9 Transient cerebral ischemic attack, unspecified (principal); R90.82 White matter disease, unspecified
CPT/HCPCS: 70496; 70498; Q9967